=== PATIENT | female | born 1990 | race Caucasian/White ===

== ENCOUNTER 2019-09-14 07:51 | Emergency (ER) | payer MEDICAID, SELFPAY ==
[2019-09-14 08:02] VITALS: BP 113/74; PULSE 93; RESP 16; TEMP 36.8; O2SAT 98; BMI 27.3
--- NOTE | 2019-09-14 08:09 | W.ED.FEMALGU ---
HPI - Female Genitourinary General: Chief complaint: Abdominal Pain Stated complaint: back pain, right side Pain Time Seen by Provider: 09/14/19 08:05 Source: patient Mode of arrival: ambulatory Limitations: no limitations History of Present Illness: HPI Narrative: Patient is a 29-year-old female who presents to ED today with complaints of right flank pain; patient states she has a known 9 mm stone to her right kidney that was diagnosed about a year ago; she has not had much problems with the area until today; patient states yesterday she slipped and fell on a dryer sheet and landed onto her buttocks; patient states she did not have pain after the fall but states several hours later she began experiencing some right flank pain that was identical in nature when she had a large stone on her left kidney; patient denies any urinary symptoms MD elicited complaint: flank pain Pertinent past history: other (previous kidney stones) Location of symptoms: flank Severity: moderate Female Urogenital Radiation: Non-Radiating Quality of pain: sharp Consistency: constant Vaginal discharge: none Vaginal bleeding: none Relieving factors: none Associated symptoms: Reports no associated symptoms; Deny abdominal pain or nausea Treatment prior to arrival: none Patient : No Review of Systems Const: Denies: fever or chills Card: Denies: chest pain Resp: Denies: shortness of breath, productive cough or non-productive cough GI: Denies: abdominal pain, nausea, vomiting, vomiting blood, diarrhea or constipation : Reports: flank pain; Denies: difficulty urinating, painful urination, urinary frequency, urinary urgency, urinary hesitancy or decreased urine ouput Musc: Denies: neck pain or back pain Skin/Breast: Denies: rash Physical Exam Const: COMMON NORMALS: no apparent distress, average body habitus, oriented x3, healthy appearing, alert and well nourished GI: COMMON NORMALS: normal to inspection, nondistended, normoactive bowel sounds, soft to palpation, non-tender, no hepatosplenomegaly and no masses PALPATION: Yes soft and Yes no hepatosplenomegaly : BLADDER/KIDNEY EXAM: Yes CVA tenderness on the right Back/Pelvis: GENERAL BACK: Yes CVA tenderness THORACIC SPINE/UPPER BACK: Yes normal to inspection, Yes thoracic ROM normal and No paraspinal muscle tenderness LUMBAR SPINE/LOWER BACK: Yes normal to inspection, Yes lumbar ROM normal and No paraspinal muscle tenderness PELVIS: Yes buttocks normal, Yes no pain with anterior-posterior compression and Yes no pain with lateral compression Neuro: COMMON NORMALS: oriented x3 SENSORIUM/ORIENTATION: Yes alert Course Vital Signs: Vital signs: Vital Signs Temperature 98.3 F 09/14/19 08:02 Pulse Rate 70 09/14/19 09:23 Respiratory Rate 16 09/14/19 09:23 Blood Pressure 147/90 09/14/19 09:23 Pulse Oximetry 98 09/14/19 09:23 MDM - Female MDM Narrative: Medical decision making narrative: CT renal back in December did not comment on a large R kidney stone but when I looked through images, she did have a 6-7mm stone in R kidney; this stone was not visualized on today's examination; UA w/o blood here; possibly degraded/passed stone on her own since last imaging was completed Lab Data: Labs: Lab Results 09/14/19 09/14/19 09/14/19 Range/Units 08:15 08:15 08:15 WBC 7.1 (4.0-10.0) 10^3/ uL RBC 4.41 (4.1-5.3) 10^6/u L Hgb 11.5 (11.5-15.3) g/dL Hct 36.7 L (37.0-47.0) % MCV 83.2 (81-99) fL MCH 26.1 L (28.0-34.0) pg MCHC 31.3 (30.0-36.0) g/dL RDW 15.6 H (12.1-15.1) % Plt Count 384 (130-400) 10^3/c mm MPV 10.4 (7.4-10.4) fL Neut % (Auto) 58.8 % Lymph % (Auto) 28.5 % [place] % (Auto) 5.8 % Eos % (Auto) 5.9 % Baso % (Auto) 0.7 % Neut # (Auto) 4.2 (1.8-7.7) 10^3/u L Lymph # (Auto) 2.0 (0.8-4.8) 10^3/u L [place] # (Auto) 0.4 (0.2-0.9) 10^3/u L Eos # (Auto) 0.4 (0.0-0.8) 10^3/u L Baso # (Auto) 0.1 (0.0-0.1) 10^3/u L Nucleated RBC % (a uto) 0 % Nucleated RBCs # 0.0 /100WBC Sodium 136 (136-145) mmol/L Potassium 4.1 (3.5-5.1) mmol/L Chloride 101 (98-107) mmol/L Carbon Dioxide 23 (22-29) mmol/L Anion Gap 16.1 (5-19) BUN 12 (6-20) mg/dL Creatinine 0.5 (0.5-0.9) mg/dL GFR Calculation 148.0 H (90-130) mL/min Glucose 111 H (74-109) mg/dL Calcium 9.5 (8.6-10.0) mg/Dl Total Bilirubin 0.3 (0.15-1.2) mg/dL AST 19 (0-32) U/L ALT 11 (0-33) U/L Alkaline Phosphata se 99 (35-105) IU/L Total Protein 7.3 (6.6-8.7) g/dL Albumin 5.4 H (3.5-5.2) g/dL Globulin 1.9 (1.3-4.6) g/dL HCG, Qual Negative (Negative) Urine Color (Yellow) Urine Appearance (CLEAR) Urine pH (5-7) Ur Specific Gravit y (1.005-1.030) Urine Protein (Negative) Urine Glucose (UA) (Normal) Urine Ketones (Negative) Urine Occult Blood (Negative) Urine Nitrate (Negative) Urine Bilirubin (NEGATIVE) Urine Urobilinogen (Negative) mg/dL Ur Leukocyte Kayy ase (Negative) 09/14/19 Range/Units 08:26 WBC (4.0-10.0) 10^3/ uL RBC (4.1-5.3) 10^6/u L Hgb (11.5-15.3) g/dL Hct (37.0-47.0) % MCV (81-99) fL MCH (28.0-34.0) pg MCHC (30.0-36.0) g/dL RDW (12.1-15.1) % Plt Count (130-400) 10^3/c mm MPV (7.4-10.4) fL Neut % (Auto) % Lymph % (Auto) % [place] % (Auto) % Eos % (Auto) % Baso % (Auto) % Neut # (Auto) (1.8-7.7) 10^3/u L Lymph # (Auto) (0.8-4.8) 10^3/u L [place] # (Auto) (0.2-0.9) 10^3/u L Eos # (Auto) (0.0-0.8) 10^3/u L Baso # (Auto) (0.0-0.1) 10^3/u L Nucleated RBC % (a uto) % Nucleated RBCs # /100WBC Sodium (136-145) mmol/L Potassium (3.5-5.1) mmol/L Chloride (98-107) mmol/L Carbon Dioxide (22-29) mmol/L Anion Gap (5-19) BUN (6-20) mg/dL Creatinine (0.5-0.9) mg/dL GFR Calculation (90-130) mL/min Glucose (74-109) mg/dL Calcium (8.6-10.0) mg/Dl Total Bilirubin (0.15-1.2) mg/dL AST (0-32) U/L ALT (0-33) U/L Alkaline Phosphata se (35-105) IU/L Total Protein (6.6-8.7) g/dL Albumin (3.5-5.2) g/dL Globulin (1.3-4.6) g/dL HCG, Qual (Negative) Urine Color Yellow (Yellow) Urine Appearance Clear (CLEAR) Urine pH 5.0 (5-7) Ur Specific Gravit y 1.025 (1.005-1.030) Urine Protein Neg (Negative) Urine Glucose (UA) Norm (Normal) Urine Ketones Negative (Negative) Urine Occult Blood Neg (Negative) Urine Nitrate Negative (Negative) Urine Bilirubin 1+ H (NEGATIVE) Urine Urobilinogen Norm (Negative) mg/dL Ur Leukocyte Kayy ase Negative (Negative) Imaging Data: CT renal : Radiologist's impression: [address] [address] [address] Scan Report Signed Patient: Celina Hinton [id number] [facility] 1990 [id number] Age/Sex: 29 / F ADM Date: 09/14/19 Loc: ER Room/Bed: Attending Dr: Ordering Provider/Ordering MD: Xenia Aviles Date of Service: 09/14/19 Procedure(s): CT kidney stone 270[address] Accession Number(s): [id number] Report Number: [id number] WS: [id number] CT scan of the abdomen and pelvis without Oral and IV contrast. Additional two-dimensional coronal and sagittal reconstruction was performed. 09/14/2019 Clinical Data: R flank pain Comparison: CT abdomen and pelvis, 01/09/2019. DLP: 893.[address] scans at [facility] use at least one of these dose optimization techniques: automated exposure control; mA and/or kV adjustment per patient size (includes targeted exams where dose is matched to clinical indication); or iterative reconstruction. Findings: The lower lungs show no nodules, masses or effusions. The liver, gallbladder, spleen, adrenal glands and pancreas are normal. The kidneys show show 2 nonobstructing central left renal calculi. No calculi are seen on the right. No ureteral calculi are seen. No hydronephrosis, mass, or or cysts are seen in either kidney. The abdominal aorta is normal in size. No appendicitis or diverticulitis is seen. No abscess, adenopathy, ascites, mass, obstruction or free air is seen. The bladder is unremarkable. Uterus is normal. No inguinal hernia is seen. The bones of the lower thorax, lumbar spine, pelvis, and hips are normal. CT/CT kidney stone [id number] Impression: 1. 2 small nonobstructing left renal calculi. 2. Negative for obstructing renal or ureteral calculi. 3. Negative for acute abdominal or pelvic abnormalities. Dictated By: Devika Stone MD Signed By: Devika Stone MD Signed Date/Time: 09/14/19 0849 DD/ 0 Discharge Plan Discharge Patient Disposition: Home, Self-Care Clinical Impression: Acute right flank pain Condition: Stable Discharge Orders: Discharge Order (Routine); Ordered 09/14/19 Ordered By: Xenia Aviles Referrals: Carroll Humphreys MD [Family Provider] - Discharge Diet: Usual diet Discharge Activity: Resume usual activity Patient Instructions: Abdominal Pain (ED) Discharge Date/Time: 09/14/19 09:24 Coding Level of Care Code ED Dispatch Machine Runner for Chg Fwd Exam Problem Focused
[2019-09-14] MEDS: sodium chloride 0.9% 1,000 ML 999 ML IV (08:22)
[2019-09-14] MEDS: ketorolac 30 mg/mL INJ IVP (08:22)
[2019-09-14 08:27] LABS: Basophils # 0.1 10^3/uL (0.0-0.1); Basophils % 0.7 %; Eosinophils # 0.4 10^3/uL (0.0-0.8); Eosinophils % 5.9 %; Hematocrit 36.7 % (37.0-47.0); Hemoglobin 11.5 g/dL (11.5-15.3); Lymphocytes % 28.5 %; Mean Corpuscular HGB Conc 31.3 g/dL (30.0-36.0); Mean Corpuscular Hemoglobin 26.1 pg (28.0-34.0); Mean Corpuscular Volume 83.2 fL (81-99); Mean Platelet Volume 10.4 fL (7.4-10.4); Monocytes # 0.4 10^3/uL (0.2-0.9); Monocytes % 5.8 %; Neutrophils # 4.2 10^3/uL (1.8-7.7); Neutrophils % 58.8 %; Nucleated Red Blood Cells % 0 %; Platelet Count 384 10^3/cmm (130-400); Red Blood Count 4.41 10^6/uL (4.1-5.3); Red Cell Distribution Width 15.6 % (12.1-15.1); White Blood Count 7.1 10^3/uL (4.0-10.0)
--- NOTE | 2019-09-14 08:30 | PC.NURSE ---
Patient walked to CT with [employer]
[2019-09-14 08:35] LABS: Add Urine Microscopic? NO
--- NOTE | 2019-09-14 08:36 | PC.NURSE ---
Patient back to treatment room
[2019-09-14 08:44] LABS: Alanine Aminotransferase 11 U/L (0-33); Albumin Level 5.4 g/dL (3.5-5.2); Alkaline Phosphatase 99 IU/L (35-105); Anion Gap 16.1 (5-19); Aspartate Amino Transferase 19 U/L (0-32); Blood Urea Nitrogen 12 mg/dL (6-20); Calcium 9.5 mg/Dl (8.6-10.0); Carbon Dioxide 23 mmol/L (22-29); Chloride 101 mmol/L (98-107); Globulin 1.9 g/dL (1.3-4.6); Glucose 111 mg/dL (74-109); Potassium 4.1 mmol/L (3.5-5.1); Sodium 136 mmol/L (136-145); Total Bilirubin 0.3 mg/dL (0.15-1.2); Total Protein 7.3 g/dL (6.6-8.7)
[2019-09-14 09:01] LABS: HCG, Serum Qual Negative (Negative)
[2019-09-14 09:02] LABS: Bilirubin Urine 1+ (NEGATIVE); Blood Urine Neg (Negative); Glucose Urine UA Norm (Normal); Ketones Urine Negative (Negative); Leukocyte Esterase Urine Negative (Negative); Nitrate Urine Negative (Negative); Protein Urine Neg (Negative); Specific Gravity, Urine 1.025 (1.005-1.030); Urine Appearance Clear (CLEAR); Urine Color Yellow (Yellow); Urobilinogen Urine Norm (Negative)
[2019-09-14 09:23] VITALS: BP 147/90; PULSE 70; RESP 16; O2SAT 98
== END 2019-09-14 09:24 | disposition home or self-care (01) ==
PROVIDERS: Emergency Provider Physician Assistant; Family Provider Family Medicine
DX: R10.9 Unspecified abdominal pain (principal)
CPT/HCPCS: 36415; 74176; 80053; 81003; 84703; 85025; 96360; 96374; 96375; 99281; A9270; J1885; J7030

== ENCOUNTER 2019-09-27 12:04 | Outpatient (CLI) | payer MEDICAID, SELFPAY ==
--- NOTE | 2019-09-27 | US_ITS ---
WS: [id number] ULTRASOUND ABDOMEN LIMITED CLINICAL INFORMATION: ABDOMINAL PAIN RUQ COMPARISON: None. FINDINGS: Liver Size: Normal. Craniocaudal length: 11.8 cm. Echogenicity: Normal. Surface nodularity: None. Mass (size and location): None. Bile ducts Intrahepatic ducts: Normal. Common bile duct diameter: 2.2 mm. Gallbladder Normal. Gallstones: None. Gallbladder sludge: None. Gallbladder wall thickening: None. Pericholecystic fluid: None. Sonographic Crawford sign: Absent. Pancreas Normal as visualized. Right kidney: Normal. Hydronephrosis: None. Size: 12.1 cm x 4.5 cm x 5.4 cm. Abdominal aorta and IVC Visualized portions are normal. Ascites: None. US/US gall bladder [id number] IMPRESSION: 1. Liver is normal. 2. Normal gallbladder. 3. No intrahepatic biliary ductal dilatation. 4. No hydronephrosis in right kidney.
== END 2019-09-27 12:05 | disposition home or self-care (01) ==
LOC: RADOUTREAD 14:41
PROVIDERS: Family Provider Family Medicine; Visit Provider Family Medicine
DX: Z76.89 Persons encountering health services in other specified circumstances (principal)

== ENCOUNTER 2019-11-04 07:38 | Outpatient (CLI) | payer MEDICAID, SELFPAY ==
--- NOTE | 2019-11-04 07:46 | NM_ITS ---
WS: [id number] NM hepatobiliary w phar* [id number] REASON FOR EXAM: RUQ ABDOMINAL PAIN TECHNICAL: Patient received 8.2 mCi technetium 99 in mebrofenin FINDINGS: After the bolus injection of the radiotracer the gallbladder visualizes well at 30 minutes patient was then given 8 ounces of Ensure Plus the ejection fraction 63%. NM/NM hepatobiliary w phar* [id number] IMPRESSION: Normal appearance of the gallbladder with normal ejection fraction.
== END 2019-11-04 07:39 | disposition home or self-care (01) ==
PROVIDERS: Family Provider Family Medicine; PCP Family Medicine; Visit Provider Family Medicine
DX: R10.11 Right upper quadrant pain (principal)
CPT/HCPCS: 78227; A9537

== ENCOUNTER 2020-04-20 06:40 | Day surgery (SDC) | payer MEDICAID, SELFPAY ==
[2020-04-20] VITALS (7 sets, daily range): BP systolic 102–114; BP diastolic 46–76; PULSE 62–81; RESP 14–18; TEMP 36.2–36.8; O2SAT 97–100
[2020-04-20 06:57] LABS: OR HCG Qualitative Urine Negative (Negative)
[2020-04-20] MEDS: sodium chloride 0.9% 1,000 ML 30 ML IV (07:11)
--- NOTE | 2020-04-20 07:17 | W.PM.OPSUD ---
Surgery/Procedure H&P Update DATE OF PROCEDURE: April 20, 2020 DATE H&P PERFORMED: 04/11/20 H&P UPDATE INFORMATION: No changes to prior documentation PLANNED PROCEDURE: Operation Date: 04/20/20 08:15 Proposed Procedures p Laparoscopic Cholecystectomy(Not Applicable) - Wali Aguilar MD
--- NOTE | 2020-04-20 07:40 | ANES.PREANE2 ---
Pre-Anesthetic Assessment Pre-Anesthetic Assessment: Height/Weight: Height 1.55 m Weight 74.843 kg Temp Pulse Resp BP Pulse Ox 98.2 F 78 18 113/76 99 04/20/20 06:52 04/20/20 06:52 04/20/20 06:52 04/20/20 06:52 04/20/20 06:52 Proposed Procedure: Operation Date: 04/20/20 08:15 Proposed Procedures p Laparoscopic Cholecystectomy(Not Applicable) - Wali Aguilar MD Familial anesthetic complications: none Was Beta Chichi taken within 24 hours: N/A Last intake: Intake Last Liquid Date 04/20/20 Last Liquid Time 00:00 Last Solid Date 04/20/20 Last Solid Time 00:00 Social: Social History: Tobacco and No alcohol Exam: Pre-Anes Outpt Exam: alert, oriented x 3, clear to auscultation bilaterally and regular rate & rhythm Airway: Cervical ROM: WNL MP: 2 Dentition: Full Anesthetic Plan: ASA status: 1 Anesthesia: General Risk of > 500 ml blood loss (7ml/kg in children): No Meds/Allergies Current Medications: Current Medications Generic Name Dose Route Start Last Admin Trade Name Freq PRN Reason Stop Dose Admin Sodium Chloride 1,000 mls @ 30 ml s/hr 04/20/20 06:45 04/20/20 07:11 Sodium Chloride 0.9% IV 04/21/20 06:44 30 mls/hr .Q24H DENYS Administration Data Anesthesia Other Labs: Laboratory Results - last 48 hr 04/20/20 06:48 Urine HCG, Qual Negative Cardiac Studies: No Data to Display
[2020-04-20 07:41] LABS: Alanine Aminotransferase 6 U/L (0-33); Albumin Level 4.5 g/dL (3.5-5.2); Alkaline Phosphatase 91 IU/L (35-105); Aspartate Amino Transferase 17 U/L (0-32); Globulin 2.6 g/dL (1.3-4.6); Total Bilirubin 0.2 mg/dL (0.15-1.2); Total Protein 7.1 g/dL (6.6-8.7)
--- NOTE | 2020-04-20 08:25 | PM.OP ---
Operative Report Date of procedure: April 20, 2020 Pre-op Diagnosis: Chronic cholecystitis. Post-op diagnosis: same Procedure Done: Laparoscopic cholecystectomy. Specimens removed/disposition: Gallbladder. Surgeon: Wali Aguilar Anesthesia: General Estimated blood loss (mL): 5 Complications: None. Condition: stable Disposition: PACU Procedure: The patient was brought to the Operating Room and was placed in a supine position on the Operating Room table. General endotracheal anesthesia was induced. The abdomen was prepped and draped in a sterile fashion. The small transverse scar just underneath the umbilicus was reopened using a scalpel. Blunt dissection was carried out down to the fascia, which was grasped with a Joseph clamp. A stay suture of 0 Vicryl was placed on either side of the midline and the midline fascia was incised. The underlying peritoneum was opened bluntly and the Gail port was placed directly into the peritoneal cavity and was held in place with the inflatable balloon. The peritoneal cavity was insufflated with carbon dioxide. The laparoscope was used to inspect the abdominal cavity. No gross abnormalities were initially noted. A 5 millimeter port was placed in the epigastrium under direct vision. Two 5-millimeter ports were placed on the right side of the abdomen under direct vision. The gallbladder was grasped and was elevated. The patient had some light adhesions to the infundibular region of the gallbladder which were all easily taken down using blunt dissection. Blunt dissection and hydrodissection were carried out in the infundibular region of the gallbladder and the cystic duct and cystic artery were identified. The gallbladder was partially removed from the liver bed using cautery and the spatula to confirm the anatomy before the structures were clipped and divided. The gallbladder was then removed from the liver bed using cautery and the spatula. After the gallbladder had been removed from the liver bed, the laparoscope was moved to the epigastric port and the gallbladder was removed from the peritoneal cavity through the umbilical port site. The stay sutures of Vicryl were tied to each other at the umbilicus. An additional [id number] suture of 0 Vicryl was placed, closing the defect so that it was airtight. The perihepatic spaces were irrigated with saline and the liver bed was reinspected. No ongoing problems were seen. The remaining ports were removed from the abdominal wall and the pneumoperitoneum was evacuated. All skin incisions were closed using inverted interrupted sutures of 4-0 Vicryl. Benzoin and Steri-Strips were placed over the incisions and Band-Aids followed. The patient was taken to the Recovery Area in stable condition postoperatively.
[2020-04-20] MEDS: ondansetron 2 mg/ML SDV 2 mL 4 MG IVP ×2 (08:40→08:56)
[2020-04-20] MEDS: HYDROcodone-acetaminophen 5-325 mg Tablet 1 TAB PO (09:10)
--- NOTE | 2020-04-20 12:28 | ANE.PACU2 ---
Inpatient post-anesthesia follow up: Airway intact: Yes Vital signs: Temperature 97.2 F Pulse Rate 70 Respiratory Rate 18 Blood Pressure 114/76 Pulse Oximetry 99 Oxygen Delivery Me thod Room Air Oxygen Flow Rate Fraction of Inspir ed Oxygen Hydration adequate: Yes Nausea and vomiting: No Pain level: 1 Mental status: Baseline
== END 2020-04-20 09:35 | disposition home or self-care (01) ==
PROVIDERS: PCP Family Medicine; Visit Provider Surgery
PROC: 0FT44ZZ Resection of Gallbladder, Percutaneous Endoscopic Approach (ICD-10-PCS; CPT 47562; principal; 2020-04-20 08:15)
DX: K81.1 Chronic cholecystitis (principal); F41.9 Anxiety disorder, unspecified; F32.9 Major depressive disorder, single episode, unspecified; D64.9 Anemia, unspecified; F17.210 Nicotine dependence, cigarettes, uncomplicated
CPT/HCPCS: 47562; 12345; 80076; 81025; 84703; 88304; 96374; J0690; J1100; J1885; J2405; J2704; J2710; J3010; J3490; J7030

== ENCOUNTER 2021-03-13 22:40 | Emergency (ER) | payer MEDICAID, SELFPAY ==
[2021-03-13 22:50] VITALS: BP 114/77; PULSE 84; RESP 18; TEMP 36.7; O2SAT 99; BMI 28.3
--- NOTE | 2021-03-13 23:31 | ED_ITS ---
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 Patient was seen by her eye personal care home administrator today and had a bandage contact lens placed. Patient reports she comes in tonight due to increased eyelid swelling and discomfort after placement of contact lens. On exam patient has swelling to the upper and lower eyelid. Patient appears in mild to moderate discomfort. Patient reports no difficulty with vision. Review of Systems General: Reports: 10 or more systems reviewed and unremarkable except in HPI and below Eyes: Reports: eye discomfort Physical Exam Const: COMMON NORMALS: no acute distress and patient oriented x3 GENERAL APPEARANCE: cooperative HENMT: COMMON NORMALS: normocephalic and Normal external nose present HEAD & SCALP: normal to inspection and normocephalic NOSE: Normal external nose present MOUTH: Normal oral and palatal mucosa present THROAT: posterior oropharynx normal Eye: OTHER: Swelling of the eyelids upper and lower of the right eye, with the use of tetracaine for anesthesia, and fluorescein for highlighting contact lens was removed. Evaluation of the cornea noted no significant corneal laceration or injury. Patient did have improvement of symptoms after removal of lens. Neck/C-Spine: COMMON NORMALS: full ROM Chest: COMMONS NORMALS: normal inspection of the chest Resp: COMMON NORMALS: normal respiratory effort EFFORT & INSPECTION: Yes able to speak in complete sentences Cardio: COMMON NORMALS: regular rate and regular rhythm RATE: regular rate RHYTHM: regular rhythm GI: COMMON NORMALS: non-tender Extremity: COMMON NORMALS: normal to inspection Neuro: COMMON NORMALS: patient oriented x3 and moves all extremities Psych: COMMON NORMALS: mental status grossly normal and cooperative Skin: COMMON NORMALS: no rashes or lesions noted GENERAL SKIN EXAM: no rashes or lesions noted Procedures FB Removal Eye Location: eye (R) Topical anesthetic used: tetracaine Foreign body: other (contact lense) Evidence of corneal penetration: No Technique: cotton tip swab Procedure performed under: direct visualization with magnification Post-procedure medication: ophthalmic antibiotic Patient tolerated procedure: well Course Vital Signs: Vital signs: Vital Signs Temperature 98.0 F 03/13/21 22:50 Pulse Rate 84 03/13/21 22:50 Respiratory Rate 18 03/13/21 22:50 Blood Pressure 114/77 03/13/21 22:50 Pulse Oximetry 99 03/13/21 22:50 MDM - Eye Problem MDM Narrative: Medical decision making narrative: 30-year-old female comes in with a inability to move contact lens that was placed today. On exam we note contact lens had shifted to the lower medial eye. Differential diagnosis inc ludes infection due to contact lens, corneal abrasion, allergic reaction. With the use of tetracaine and irrigation and a moistened cotton tip I was able to remove the bandage contact lens. Patient tolerated well. We will place patient on some Maxitrol eyedrops and recommend follow-up with eye personal care home administrator in the morning. Patient reported understanding and agreed to plan. Discharge Plan Discharge Patient Disposition: Home Clinical Impression: Contact lens stuck Condition: Stable Prescriptions: No Action hydrocodone-acetaminophen 5-325 mg tablet 1 - 2 tab PO Q5H PRN (Reason: pain) Qty: 30 RF: 0 Discharge Orders: Discharge ED (Routine); Ordered 03/14/21 Ordered By: Rodney Encarnacion Referrals: Carroll Humphreys MD [Primary Care Provider] - Discharge Diet: Usual diet Discharge Activity: Increase activity as tolerated Patient Instructions: Opioid Safety Activity Restrictions/Additional Instructions: Use antibiotic eyedrops as directed. Follow-up with eye personal care home administrator tomorrow. Return to the ER for new concerns. Coding Level of Care Code ED Hospital Supervisor for Adi Fwjavier Exam Comprehensive
[2021-03-13] MEDS: fluorescein 1 mg Strip EYE-RIGHT (23:51)
[2021-03-13] MEDS: tetracaine 0.5% Op Soln 4 mL Btl 1 DROP EYE-RIGHT (23:51)
[2021-03-14] MEDS: neomycin-poly-dex Op 5 mL Btl 2 DROP EYE-RIGHT (00:27)
[2021-03-14 00:39] VITALS: BP 113/76; PULSE 81; RESP 17; O2SAT 100
== END 2021-03-14 00:39 | disposition home or self-care (01) ==
PROVIDERS: Emergency Provider Nurse Practitioner Family; PCP Family Medicine
DX: T15.01XA Foreign body in cornea, right eye, initial encounter (principal); X58.XXXA Exposure to other specified factors, initial encounter
CPT/HCPCS: 65205; 99283

== ENCOUNTER 2021-06-22 10:43 | Emergency (ER) | payer MEDICAID, SELFPAY ==
[2021-06-22] VITALS (9 sets, daily range): BP systolic 109–122; BP diastolic 57–80; PULSE 76–95; RESP 12–20; TEMP 36.8; O2SAT 95–100; BMI 28.3
--- NOTE | 2021-06-22 11:57 | W.ED.ABDPA2 ---
Documented by User: SAYDA Lira 06/22/21 17:41 HPI - Abdominal Pain General: Chief Complaint: General Medical Stated Complaint: LEFT FLANK AND GROIN PAIN Time Seen by Provider: 06/22/21 11:24 History of Present Illness: HPI narrative: Patient is a 31-year-old female comes to the ED with abdominal pain. Patient describes pain is in the left flank region and it radiates to into left lower pelvis. She rates the pain currently an 8 out of 10. Says been getting up and moving around relieves it a little bit, but if she has to sit down pain seems to get worse. She has a history of kidney stones and says this feels similar to her last kidney stone. Associated Symptoms: Denies chills, constipation, diarrhea, dysuria, fever(s), hematochezia, hematuria, nausea and vomiting Review of Systems Const: Denies: fever(s), chills or fatigue Eyes: Denies: change in vision or eye discomfort ENMT: Denies: throat pain, odynophagia, nasal discharge or nasal congestion Card: Denies: chest pain, palpitations, edema, swelling of feet/ankles, dyspnea on exertion or orthopnea Resp: Denies: dyspnea, productive cough or non-productive cough GI: Denies: abdominal pain, nausea, vomiting, diarrhea, constipation or hematochezia : Reports: flank pain (left); Denies: dysuria or hematuria Musc: Denies: neck pain, back pain or extremity swelling Skin/Breast: Denies: rash or new lesions Neuro: Denies: headache(s), numbness in extremities or weakness in extremities Physical Exam Const: COMMON NORMALS: patient oriented x3, healthy appearing and alert GENERAL APPEARANCE: cooperative; not comfortable (Patient appears uncomfortable and is up moving around room due to pain) HENMT: COMMON NORMALS: normocephalic HEAD & SCALP: normocephalic MOUTH: Normal oral and palatal mucosa present THROAT: posterior oropharynx normal and uvula midline Neck/C-Spine: COMMON NORMALS: supple GENERAL: Yes normal visual inspection Resp: COMMON NORMALS: normal respiratory effort, No retractions, No use of accessory muscles and clear to auscultation bilaterally AUSCULTATION: clear to auscultation bilaterally Cardio: COMMON NORMALS: regular rate, regular rhythm, S1 normal heart sound present, S2 normal heart sound present, No gallops present (Cardio), No clicks present (Cardio), No murmurs present (Cardio) and Peripheral pulses 2+ throughout RATE: regular rate RHYTHM: regular rhythm HEART SOUNDS: S1 normal heart sound present and S2 normal heart sound present PERIPHERAL PULSES: Peripheral pulses 2+ throughout GI: COMMON NORMALS: Normal to inspection, nondistended, normoactive bowel sounds present, Soft to palpation, non-tender and no masses PALPATION: Yes Soft to palpation : BLADDER/KIDNEY EXAM: Yes CVA tenderness on the left Back/Pelvis: GENERAL BACK: Yes CVA tenderness Extremity: COMMON NORMALS: normal to inspection Neuro: COMMON NORMALS: patient oriented x3 SENSORIUM/ORIENTATION: Yes alert GAIT: Yes Normal gait present Skin: GENERAL SKIN EXAM: dry skin Course Reevaluation(s): Reevaluation #1: Patient's pain is finally controlled after she was given a dose of 1 mg Dilaudid. Previously, she had received 2 other doses of 4 mg of morphine and did not help at all with her pain. She is now sitting comfortably on the exam chair when I enter the room. She says she is in no pain for the first time since she has been here in the ED. Patient's pain is controlled and she is ready to be discharged home. Time: 16:06 Consultations: Consultation #1: I contacted Dr. Wadsworth about patient case. He recommended that if I get patient's pain controlled she can discharge home and he will see her in the office next week. Due to location of the stone he did not recommend me using any Toradol while she was here in the ED. Vital Signs: Vital signs: Vital Signs Temperature 98.3 F 06/22/21 11:45 Pulse Rate 95 06/22/21 16:59 Respiratory Rate 16 06/22/21 16:59 Blood Pressure 109/57 06/22/21 16:59 Pulse Oximetry 95 06/22/21 16:59 MDM - Abdominal Pain MDM Narrative: Medical decision making narrative: Patient is a 31-year-old female comes to the ED with left flank pain. Patient has a history of kidney stones and says this pain is similar to her past kidney stone pain. She has some left CVA tenderness upon exam. Vitals are stable. CBC and CMP are unremarkable. hCG negative. UA showed blood but no signs of infection. CT abdomen pelvis showed a left proximal ureter 3 mm stone. Patient's pain was hard to control at first she was given IV morphine 2 doses 4 mg and Zofran for nausea. I contacted Dr. Wadsworth told outpatient case and he recommended to continue try to get her pain controlled with narcotic meds but to not use Toradol since it is a proximal stone. He recommended once patient's pain is controlled they can be discharged home in he will follow up with them next week. Was able to control patient's pain with IV Dilaudid and she was comfortable and ready for discharge. She was also given IV fluids and tamsulosin while here in the ED. I placed order with case management for patient referred to Dr. Wadsworth for left-sided kidney stone. Patient stable and was discharged home and diagnosed with kidney stone on left side. She was instructed to strain her urine to catch stone and she was discharged home with a prescription for tamsulosin, Reglan and hydrocodone. Return to ED precautions given. Patient understood agree with plan. Lab Data: Attestation: I reviewed the patient's lab results. Labs: Lab Results 06/22/21 06/22/21 06/22/21 12:11 12:11 12:25 WBC 6.9 10^3/uL 10^3/ uL (4.0-10.0) RBC 4.36 10^6/uL 10^6 /uL (4.1-5.3) Hgb 13.1 g/dL g/dL (11.5-15.3) Hct 40.3 % % (37.0-47.0) MCV 92.4 fl fl (81-99) MCH 30.0 pg pg (28.0-34.0) MCHC 32.5 g/dL g/dL (30.0-36.0) RDW 12.5 % % (12.1-15.1) Plt Count 303 10^3/cmm 10^3 /cmm (130-400) MPV 11.7 fL H fL (7.4-10.4) Neut % (Auto) 65.8 % % Lymph % (Auto) 27.3 % % Long % (Auto) 5.5 % % Eos % (Auto) 0.7 % % Baso % (Auto) 0.6 % % Neut # (Auto) 4.51 10^3/uL 10^3 /uL (1.8-7.7) Lymph # (Auto) 1.9 10^3/uL 10^3/ uL (0.8-4.8) Long # (Auto) 0.4 10^3/uL 10^3/ uL (0.2-0.9) Eos # (Auto) 0.1 10^3/uL 10^3/ uL (0.0-0.8) Baso # (Auto) 0.0 10^3/uL 10^3/ uL (0.0-0.1) Nucleated RBC % (a uto) 0 % % Nucleated RBCs # 0.0 /100WBC /100W BC Sodium Potassium Chloride Carbon Dioxide Anion Gap BUN Creatinine GFR Calculation Glucose Calculated Osmolal ity Calcium Total Bilirubin AST ALT Alkaline Phosphata se Total Protein Albumin Globulin Lipase HCG, Qual Negative (Negative) Urine Color Dark yellow (Yellow) Urine Appearance Cloudy (CLEAR) Urine pH 5 (5-7) Ur Specific Gravit y 1.005 (1.005-1.030) Urine Protein Trace (Negative) Urine Glucose (UA) Norm (Normal) Urine Ketones 1+ H (Negative) Urine Blood 3+ H (Negative) Urine Nitrate Negative (Negative) Urine Bilirubin Neg (Negative) Urine Urobilinogen Norm mg/dL mg/dL (Negative) Ur Leukocyte Kayy ase Trace H (Negative) Urine RBC 40-50 /hpf H /hpf (0-2) Urine WBC 5-10 /hpf H /hpf (0-5) Ur Squamous Epith Cells 5-10 /hpf H /hpf (0-5) Amorphous Sediment Not Reportable Urine Bacteria Trace /hpf /hpf (NONE) 06/22/21 06/22/21 12:25 12:25 WBC RBC Hgb Hct MCV MCH MCHC RDW Plt Count MPV Neut % (Auto) Lymph % (Auto) Long % (Auto) Eos % (Auto) Baso % (Auto) Neut # (Auto) Lymph # (Auto) Long # (Auto) Eos # (Auto) Baso # (Auto) Nucleated RBC % (a uto) Nucleated RBCs # Sodium 134 mmol/L L mmol /L (136-145) Potassium 4.2 mmol/L mmol/L (3.5-5.1) Chloride 101 mmol/L mmol/L (98-107) Carbon Dioxide 20 mmol/L L mmol/ L (22-29) Anion Gap 17.2 (5-19) BUN 9 mg/dL mg/dL (6-20) Creatinine 0.6 mg/dL mg/dL (0.5-0.9) GFR Calculation 118.2 mL/min mL/m in (90-130) Glucose 87 mg/dL mg/dL (65-115) Calculated Osmolal ity 276 mOsm/kg L mOs m/kg (285-295) Calcium 9.0 mg/dL mg/dL (8.5-10.5) Total Bilirubin 0.3 mg/dL mg/dL (0.15-1.2) AST 14 U/L U/L (0-32) ALT 8 U/L U/L (0-33) Alkaline Phosphata se 55 IU/L IU/L (35-105) Total Protein 7.4 g/dL g/dL (6.6-8.7) Albumin 4.6 g/dL g/dL (3.5-5.2) Globulin 2.8 g/dL g/dL (1.3-4.6) Lipase 18 U/L U/L (13-60) HCG, Qual Negative (Negative) Urine Color Urine Appearance Urine pH Ur Specific Gravit y Urine Protein Urine Glucose (UA) Urine Ketones Urine Blood Urine Nitrate Urine Bilirubin Urine Urobilinogen Ur Leukocyte Kayy ase Urine RBC Urine WBC Ur Squamous Epith Cells Amorphous Sediment Urine Bacteria Imaging Data ^: CT Abd/Pel: Attestation: I personally reviewed and interpreted this imaging study as follows: Radiologist's impression: [address] [address] [address] Scan Report Signed Patient: Celina Hinton Unit #: [id number] : 1990 Age/Sex: 31 / F ADM Date: 06/22/21 Loc: ER Room/Bed: Attending Dr: Ordering Provider/Ordering MD: Terry Avila Date of Service: 06/22/21 Procedure(s): CT kidney stone [address] Accession Number(s): [id number] Report Number: [id number] WS: [id number] CT ABDOMEN PELVIS TECHNIQUE: Noncontrast CT of the abdomen and pelvis with coronal and sagittal reformatted images. CLINICAL INFORMATION: left flank pain, history of kidney stones COMPARISON: None. DLP: 843.[address] scans at [facility] use at least one of these dose optimization techniques: automated exposure control; mA and/or kV adjustment per patient size (includes targeted exams where dose is matched to clinical indication); or iterative reconstruction. FINDINGS: Moderate to advanced left hydronephrosis with obstructing left proximal ureteral calculus measuring 3 mm. Left ureter is decompressed distal to the calculus. No hydronephrosis in right kidney. Lung bases are well aerated. Noncontrast liver is normal. Cholecystectomy clips. Noncontrast spleen is normal. Normal GE junction. Adrenal glands are normal. Normal caliber abdominal aorta. No evidence of high-grade small or large bowel obstruction. Fat-containing umbilical hernia. Normal caliber abdominal aorta. Mild disc bulging L5-S1. Normal appendix right lower quadrant. CT/CT kidney stone [id number] IMPRESSION: 1. Moderate to severe left hydronephrosis with obstructing left proximal ureteral calculus measuring 3 mm. 2. No obstructing right renal or ureteral calculi. 3. Prior cholecystectomy. 4. Fat-containing umbilical hernia. 5. No other significant findings. Notified SAYDA Lira at 06/22/2021 1:14 PM. Dictated By: Jarad Durand MD Signed By: Jarad Durand MD Signed Date/Time: 06/22/21 1316 DD/ 1306 Discharge Plan Discharge Patient Disposition: Home Clinical Impression: Kidney stone on left side Condition: Stable Prescriptions: New tamsulosin 0.4 mg capsule 0.4 mg PO DAILY Qty: 20 RF: 0 Reglan 10 mg tablet 10 mg PO Q6H PRN (Reason: nausea and vomiting) Qty: 15 RF: 0 No Action hydrocodone-acetaminophen 5-325 mg tablet 1 - 2 tab PO Q5H PRN (Reason: pain) Qty: 30 RF: 0 Discharge Orders: Discharge ED (Routine); Ordered 06/22/21 Ordered By: Terry Avila Referrals: Carroll Humphreys MD [Primary Care Provider] - Discharge Diet: Regular Discharge Activity: Increase activity as tolerated Patient Instructions: Kidney Stones (ED), How to Strain Your Urine (ED), Opioid Safety Activity Restrictions/Additional Instructions: Follow-up with medical provider as directed. Case management should be contacting you in the next several days to set up an appointment with Dr. Wadsworth the urologist. Strain urine to catch stone and drink lots of fluid to stay hydrated and help pass stone. Take medications as prescribed. You can take ibuprofen or Aleve for any pain or fevers. Return to the ER or your medical provider if condition worsens. Please read and understand discharge instructions. If any questions, please ask. Coding Level of Care Code ED Director Of Housing for Chg Fwd Exam Comprehensive Documented by User: David Sepulveda MD 06/25/21 21:31 HPI - Abdominal Pain General: Chief Complaint: General Medical Stated Complaint: LEFT FLANK AND GROIN PAIN Time Seen by Provider: 06/22/21 11:24 Course Vital Signs: Vital signs: Vital Signs Temperature 98.3 F 06/22/21 11:45 Pulse Rate 95 06/22/21 16:59 Respiratory Rate 16 06/22/21 16:59 Blood Pressure 109/57 06/22/21 16:59 Pulse Oximetry 95 06/22/21 16:59 MDM - Abdominal Pain MDM Narrative: Medical decision making narrative: I have reviewed documentation, labs, and imaging. SAYDA Lira discussed the case with urology. David Sepulveda MD Emergency Medicine Lab Data: Labs: Lab Results 06/22/21 06/22/21 06/22/21 12:11 12:11 12:25 WBC 6.9 10^3/uL 10^3/ uL (4.0-10.0) RBC 4.36 10^6/uL 10^6 /uL (4.1-5.3) Hgb 13.1 g/dL g/dL (11.5-15.3) Hct 40.3 % % (37.0-47.0) MCV 92.4 fl fl (81-99) MCH 30.0 pg pg (28.0-34.0) MCHC 32.5 g/dL g/dL (30.0-36.0) RDW 12.5 % % (12.1-15.1) Plt Count 303 10^3/cmm 10^3 /cmm (130-400) MPV 11.7 fL H fL (7.4-10.4) Neut % (Auto) 65.8 % % Lymph % (Auto) 27.3 % % Long % (Auto) 5.5 % % Eos % (Auto) 0.7 % % Baso % (Auto) 0.6 % % Neut # (Auto) 4.51 10^3/uL 10^3 /uL (1.8-7.7) Lymph # (Auto) 1.9 10^3/uL 10^3/ uL (0.8-4.8) Long # (Auto) 0.4 10^3/uL 10^3/ uL (0.2-0.9) Eos # (Auto) 0.1 10^3/uL 10^3/ uL (0.0-0.8) Baso # (Auto) 0.0 10^3/uL 10^3/ uL (0.0-0.1) Nucleated RBC % (a uto) 0 % % Nucleated RBCs # 0.0 /100WBC /100W BC Sodium Potassium Chloride Carbon Dioxide Anion Gap BUN Creatinine GFR Calculation Glucose Calculated Osmolal ity Calcium Total Bilirubin AST ALT Alkaline Phosphata se Total Protein Albumin Globulin Lipase HCG, Qual Negative (Negative) Urine Color Dark yellow (Yellow) Urine Appearance Cloudy (CLEAR) Urine pH 5 (5-7) Ur Specific Gravit y 1.005 (1.005-1.030) Urine Protein Trace (Negative) Urine Glucose (UA) Norm (Normal) Urine Ketones 1+ H (Negative) Urine Blood 3+ H (Negative) Urine Nitrate Negative (Negative) Urine Bilirubin Neg (Negative) Urine Urobilinogen Norm mg/dL mg/dL (Negative) Ur Leukocyte Kayy ase Trace H (Negative) Urine RBC 40-50 /hpf H /hpf (0-2) Urine WBC 5-10 /hpf H /hpf (0-5) Ur Squamous Epith Cells 5-10 /hpf H /hpf (0-5) Amorphous Sediment Not Reportable Urine Bacteria Trace /hpf /hpf (NONE) 10/22/21 10/22/21 12:25 12:25 WBC RBC Hgb Hct MCV MCH MCHC RDW Plt Count MPV Neut % (Auto) Lymph % (Auto) Long % (Auto) Eos % (Auto) Baso % (Auto) Neut # (Auto) Lymph # (Auto) Long # (Auto) Eos # (Auto) Baso # (Auto) Nucleated RBC % (a uto) Nucleated RBCs # Sodium 134 mmol/L L mmol /L (136-145) Potassium 4.2 mmol/L mmol/L (3.5-5.1) Chloride 101 mmol/L mmol/L (98-107) Carbon Dioxide 20 mmol/L L mmol/ L (22-29) Anion Gap 17.2 (5-19) BUN 9 mg/dL mg/dL (6-20) Creatinine 0.6 mg/dL mg/dL (0.5-0.9) GFR Calculation 118.2 mL/min mL/m in (90-130) Glucose 87 mg/dL mg/dL (65-115) Calculated Osmolal ity 276 mOsm/kg L mOs m/kg (285-295) Calcium 9.0 mg/dL mg/dL (8.5-10.5) Total Bilirubin 0.3 mg/dL mg/dL (0.15-1.2) AST 14 U/L U/L (0-32) ALT 8 U/L U/L (0-33) Alkaline Phosphata se 55 IU/L IU/L (35-105) Total Protein 7.4 g/dL g/dL (6.6-8.7) Albumin 4.6 g/dL g/dL (3.5-5.2) Globulin 2.8 g/dL g/dL (1.3-4.6) Lipase 18 U/L U/L (13-60) HCG, Qual Negative (Negative) Urine Color Urine Appearance Urine pH Ur Specific Gravit y Urine Protein Urine Glucose (UA) Urine Ketones Urine Blood Urine Nitrate Urine Bilirubin Urine Urobilinogen Ur Leukocyte Kayy ase Urine RBC Urine WBC Ur Squamous Epith Cells Amorphous Sediment Urine Bacteria Discharge Plan Discharge Patient Disposition: Home Clinical Impression: Kidney stone on left side Condition: Stable Prescriptions: New tamsulosin 0.4 mg capsule 0.4 mg PO DAILY Qty: 20 RF: 0 Reglan 10 mg tablet 10 mg PO Q6H PRN (Reason: nausea and vomiting) Qty: 15 RF: 0 No Action hydrocodone-acetaminophen 5-325 mg tablet 1 - 2 tab PO Q5H PRN (Reason: pain) Qty: 30 RF: 0 Discharge Orders: Discharge ED (Routine); Ordered 06/22/21 Ordered By: Terry Avila Referrals: Carroll Humphreys MD [Primary Care Provider] - Discharge Diet: Regular Discharge Activity: Increase activity as tolerated Patient Instructions: Kidney Stones (ED), How to Strain Your Urine (ED), Opioid Safety Activity Restrictions/Additional Instructions: Follow-up with medical provider as directed. Case management should be contacting you in the next several days to set up an appointment with Dr. Wadsworth the urologist. Strain urine to catch stone and drink lots of fluid to stay hydrated and help pass stone. Take medications as prescribed. You can take ibuprofen or Aleve for any pain or fevers. Return to the ER or your medical provider if condition worsens. Please read and understand discharge instructions. If any questions, please ask. Coding Level of Care Code ED Director Of Housing for Adi Fwd Exam Comprehensive
--- NOTE | 2021-06-22 12:02 | CT_ITS ---
WS: [id number] CT ABDOMEN PELVIS TECHNIQUE: Noncontrast CT of the abdomen and pelvis with coronal and sagittal reformatted images. CLINICAL INFORMATION: left flank pain, history of kidney stones COMPARISON: None. DLP: 843.[address] scans at [facility] use at least one of these dose optimization techniques: automated e xposure control; mA and/or kV adjustment per patient size (includes targeted exams where dose is matc hed to clinical indication); or iterative reconstruction. FINDINGS: Moderate to advanced left hydronephrosis with obstructing left proximal ureteral calculus measuring 3 mm. Left ureter is decompressed distal to the calculus. No hydronephrosis in right kidney. Lung bases are well aerated. Noncontrast liver is normal. Cholecys tectomy clips. Noncontrast spleen is normal. Normal GE junction. Adrenal glands are normal. Normal ca liber abdominal aorta. No evidence of high-grade small or large bowel obstruction. Fat-containing umbilical hernia. Normal c aliber abdominal aorta. Mild disc bulging L5-S1. Normal appendix right lower quadrant. CT/CT kidney stone [id number] IMPRESSION: 1. Moderate to severe left hydronephrosis with obstructing left proximal urete ral calculus measuring 3 mm. 2. No obstructing right renal or ureteral calculi. 3. Prior cholecystectomy. 4. Fat-containing umbilical hernia. 5. No other significant findings. Notified SAYDA Lira at 06/22/2021 1:14 PM.
[2021-06-22 12:25] LABS: HCG Qualitative Urine. Negative (Negative)
[2021-06-22] MEDS: ondansetron 2 mg/ML SDV 2 mL 4 MG IVP (12:27)
[2021-06-22] MEDS: sodium chloride 0.9% 1,000 ML 999 ML IV (12:29)
[2021-06-22] MEDS: morphine 4 mg/mL SDV 1 mL IVP ×2 (12:30→14:03)
[2021-06-22 12:41] LABS: Basophils % 0.6 %; Eosinophils # 0.1 10^3/uL (0.0-0.8); Eosinophils % 0.7 %; Hematocrit 40.3 % (37.0-47.0); Hemoglobin 13.1 g/dL (11.5-15.3); Lymphocytes # 1.9 10^3/uL (0.8-4.8); Lymphocytes % 27.3 %; Mean Corpuscular HGB Conc 32.5 g/dL (30.0-36.0); Mean Corpuscular Volume 92.4 fl (81-99); Mean Platelet Volume 11.7 fL (7.4-10.4); Monocytes # 0.4 10^3/uL (0.2-0.9); Monocytes % 5.5 %; Neutrophils # 4.51 10^3/uL (1.8-7.7); Neutrophils % 65.8 %; Nucleated Red Blood Cells % 0 %; Platelet Count 303 10^3/cmm (130-400); Red Blood Count 4.36 10^6/uL (4.1-5.3); Red Cell Distribution Width 12.5 % (12.1-15.1); White Blood Count 6.9 10^3/uL (4.0-10.0)
[2021-06-22 13:07] LABS: HCG, Serum Qual Negative (Negative)
[2021-06-22 13:11] LABS: Add Urine Microscopic? YES; Bilirubin Urine Neg (Negative); Blood Urine 3+ (Negative); Glucose Urine UA Norm (Normal); Ketones Urine 1+ (Negative); Leukocyte Esterase Urine Trace (Negative); Nitrate Urine Negative (Negative); Protein Urine Trace (Negative); Specific Gravity, Urine 1.005 (1.005-1.030); Urine Appearance Cloudy (CLEAR); Urine Color Dark Yellow (Yellow); Urobilinogen Urine Norm (Negative); pH Urine 5 (5-7)
[2021-06-22 13:12] LABS: Add Urine Culture? No; Bacteria Urine TRACE /hpf; RBC Urine 40-50 /hpf (0-2)
[2021-06-22 13:15] LABS: Alanine Aminotransferase 8 U/L (0-33); Albumin Level 4.6 g/dL (3.5-5.2); Alkaline Phosphatase 55 IU/L (35-105); Anion Gap 17.2 (5-19); Aspartate Amino Transferase 14 U/L (0-32); Blood Urea Nitrogen 9 mg/dL (6-20); Carbon Dioxide 20 mmol/L (22-29); Chloride 101 mmol/L (98-107); Globulin 2.8 g/dL (1.3-4.6); Glomerular Filtration Rate 118.2 mL/min (90-130); Glucose 87 mg/dL (65-115); Lipase 18 U/L (13-60); Osmolality Calculated 276 mOsm/kg (285-295); Potassium 4.2 mmol/L (3.5-5.1); Sodium 134 mmol/L (136-145); Total Bilirubin 0.3 mg/dL (0.15-1.2); Total Protein 7.4 g/dL (6.6-8.7)
[2021-06-22] MEDS: tamsulosin 0.4 mg Capsule PO (14:04)
[2021-06-22] MEDS: HYDROmorphone 1 mg/mL INJ 1 mL IVP (15:39)
[2021-06-22] MEDS: sodium chloride 0.9% 500 ML 999 ML IV (15:39)
[2021-06-22] MEDS: metoclopramide 5 mg/mL SDV 2 mL 10 MG IVP (15:43)
--- NOTE | 2021-06-27 10:14 | DCPLANNER ---
Addendum entered by Mary Chu 07/05/21 13:50: selling manager called the office of Dr. Wadsworth to confirm if an appointment had been scheduled for patient. selling manager spoke with Valeriy, was told that patient passed stone, and does not need to be seen at this time. Original Note: selling manager had message to schedule a follow up appointment for patient with Dr. Wadsworth. selling manager called the office of Dr. Wadsworth, spoke with Valeriy, gave clinic patients information. selling manager was told that patients information would be printed and reviewed. Clinic will call patient with appointment information.
== END 2021-06-22 17:01 | disposition home or self-care (01) ==
PROVIDERS: Emergency Medicine; Emergency Provider Physician Assistant; PCP Family Medicine
DX: N20.0 Calculus of kidney (principal)
CPT/HCPCS: 74176; 80053; 81001; 81025; 83690; 84703; 85025; 96361; 96374; 96375; 96376; 99284; J1170; J2270; J2405; J2765; J7030; J7040

== ENCOUNTER 2021-07-22 12:32 | Emergency (ER) | payer MEDICAID, SELFPAY ==
[2021-07-22 12:44] VITALS: BP 120/86; PULSE 102; RESP 16; TEMP 36.9; O2SAT 98
--- NOTE | 2021-07-22 12:55 | USR_ITS ---
PROCEDURE INFORMATION: Exam: US Pelvis, Transvaginal Exam date and time: 07/22/2021 12:55 PM Age: 31 years old Clinical indication: Condition or disease; Other: Vaginal bleeding; Additional info: Eval for bleeding TECHNIQUE: Imaging protocol: Real-time transvaginal pelvic ultrasound with image documentation. Transvaginal imaging was used for better evaluation of the endometrium, adnexa, and/or cervix. COMPARISON: US pelvic complete* [id number] 04/02/2021 4:17 PM FINDINGS: Uterus: The uterus measures 7.7 x 3.7 x 4.9 cm. Nonspecific subcentimeter echogenic focus posterior to the endometrial fundus. No uterine mass. Endometrial stripe thickness measures 5 mm. Right ovary/adnexa: The right ovary measures 2.1 x 2.7 x 1.6 cm. No mass. Normal ovarian blood flow. Left ovary/adnexa: The left ovary measures 2.4 x 2.5 x 1.1 cm. No mass. Normal ovarian blood flow. Intraperitoneal space: No free fluid. US/US transvaginal [id number] IMPRESSION: No acute findings. Radiation Dose CTDIVOL = (mGy): DLP = (mGy-cm)
--- NOTE | 2021-07-22 13:11 | ED_ITS ---
HPI - General Adult General: Chief complaint: Vaginal Bleeding Stated complaint: losing blood Time Seen by Provider: 07/22/21 12:52 History of Present Illness: HPI narrative: Patient is a 31-year-old female with a history of abnormal uterine bleeding, prior tubal ligation presents emergency room with worsening vaginal bleeding x1 day. Patient has been abnormally she goes through 6 pads a day. However since yesterday, patient has been going through a pad every hour. Patient reports feeling lightheaded, passage of clots, and mild pelvic cramps. Patient has no abdominal, nausea/vomiting, fevers or chills, chest pain, dyspnea, and palpitations. Onset:1 day ago acutely Duration:1 day Location:home Severity:moderate Review of Systems Narrative: Constitutional: No fever, no chills. HEENT: No vision changes CV: No chest pain, no palpitations PULM: no cough, no dyspnea. GI: No abdominal pain, no N/V/D. : No dysuria, +vaginal bleeding/+mild cramps MSKEL: No muscle pain SKIN: No new rashes, no lesions. NEURO: No headache, no focal weakness. HEME: No visible bruises PSYCH: Normal mood [facility] Female Reproductive History: Date of last menstrual period: 04/01/21 Physical Exam Narrative: EXAM NARRATIVE: Head: Atraumatic Eyes: PERRL, conjunctiva without injection ENT: Mucous membrane moist NECK: Supple, ROM intact LUNGS: LCTAB, no crackles/rhonchi CV: RRR ABDOMEN: Soft, nontender in all quadrants EXTREMITY: Normal ROM SKIN: No rash or erythema NEURO: Awake and alert, no focal motor deficits PSYCH: Normal mood and affect : Course Vital Signs: Vital signs: Vital Signs Temperature 98.4 F 07/22/21 12:44 Pulse Rate 71 07/22/21 15:34 Respiratory Rate 18 07/22/21 15:34 Blood Pressure 106/67 07/22/21 15:34 Pulse Oximetry 97 07/22/21 15:34 MDM - General Adult MDM Narrative: Medical decision making narrative: Patient is a 31-year-old female with a history of abnormal uterine bleeding, tubal ligation presents emergency room passage of clots worsening/heavy bleeding x1 day. On exam, patient is noted to be mildly tachycardic. Patient does not appear pale on exam. Pelvic exam is significant mild bleeding in the vaginal vault without any signs of active bleeding. Workup: CBC, CMP, Lipase, PT/PTT/INR, hCG, Transvaginal US US showed no focal findings. H&H appears to be stable. Patient continues to hemodynamically stable without any signs of active bleeding. Not today. Disposition: Discharge. Patient counseled regarding diagnostic impression, treatment plan. Patient given ED strict return precautions to return for continuation, worsening, or development of new symptoms. Instructed to f/u w/ PCP regarding symptoms today. Patient verbalized understanding. Lab Data: Labs: Lab Results 07/22/21 07/22/21 07/22/21 13:00 13:02 13:02 WBC 6.4 10^3/uL 10^3/ uL (4.0-10.0) RBC 4.33 10^6/uL 10^6 /uL (4.1-5.3) Hgb 13.2 g/dL g/dL (11.5-15.3) Hct 38.8 % % (37.0-47.0) MCV 89.6 fl fl (81-99) MCH 30.5 pg pg (28.0-34.0) MCHC 34.0 g/dL g/dL (30.0-36.0) RDW 12.7 % % (12.1-15.1) Plt Count 240 10^3/cmm 10^3 /cmm (130-400) MPV 11.6 fL H fL (7.4-10.4) Neut % (Auto) 62.6 % % Lymph % (Auto) 31.7 % % Kidder % (Auto) 3.5 % % Eos % (Auto) 1.6 % % Baso % (Auto) 0.3 % % Neut # (Auto) 3.99 10^3/uL 10^3 /uL (1.8-7.7) Lymph # (Auto) 2.0 10^3/uL 10^3/ uL (0.8-4.8) Kidder # (Auto) 0.2 10^3/uL 10^3/ uL (0.2-0.9) Eos # (Auto) 0.1 10^3/uL 10^3/ uL (0.0-0.8) Baso # (Auto) 0.0 10^3/uL 10^3/ uL (0.0-0.1) Nucleated RBC % (a uto) 0 % % Nucleated RBCs # 0.0 /100WBC /100W BC PT INR APTT Sodium Potassium Chloride Carbon Dioxide Anion Gap BUN Creatinine GFR Calculation Glucose Calculated Osmolal ity Calcium Ser , Marilyn i-Qnt 0.50 mIU/mL mIU/m L Blood Type O Positive Rho(D) Type Positive Antibody Screen Negative 07/22/21 07/22/21 13:02 13:02 WBC RBC Hgb Hct MCV MCH MCHC RDW Plt Count MPV Neut % (Auto) Lymph % (Auto) Kidder % (Auto) Eos % (Auto) Baso % (Auto) Neut # (Auto) Lymph # (Auto) Kidder # (Auto) Eos # (Auto) Baso # (Auto) Nucleated RBC % (a uto) Nucleated RBCs # PT 14.30 SECONDS SEC ONDS (12.1-14.9) INR 1.08 (0.8-1.2) APTT 27.3 SECONDS SECO NDS (23.9-36.7) Sodium 138 mmol/L mmol/L (136-145) Potassium 3.7 mmol/L mmol/L (3.5-5.1) Chloride 104 mmol/L mmol/L (98-107) Carbon Dioxide 24 mmol/L mmol/L (22-29) Anion Gap 13.7 (5-19) BUN 7 mg/dL mg/dL (6-20) Creatinine 0.6 mg/dL mg/dL (0.5-0.9) GFR Calculation 118.2 mL/min mL/m in (90-130) Glucose 108 mg/dL mg/dL (65-115) Calculated Osmolal ity 285 mOsm/kg mOsm/ kg (285-295) Calcium 8.6 mg/dL mg/dL (8.5-10.5) Ser , Marilyn i-Qnt Blood Type Rho(D) Type Antibody Screen Imaging Data^: Other Imaging: Radiologist's impression: Jaclyn [address] [address]Vqxaxagcdr ReportSigned Patient: Celina Hinton RUnit #: [id number]: 1990Acct# :[id number]/Sex: 31 / FADM Date: 07/22/21Loc: ERRoom/Bed:Attending Dr: Ordering Provider/Ordering MD: Baltazar Claire MD Date of Service: 07/22/21 Procedure(s): US transvaginal [id number] Accession Number(s): [id number] Report Number: [id number] PROCEDURE INFORMATION: Exam: US Pelvis, Transvaginal Exam date and time: 07/22/2021 12:55 PM Age: 31 years old Clinical indication: Condition or disease; Other: Vaginal bleeding; Additional info: Eval for bleeding TECHNIQUE: Imaging protocol: Real-time transvaginal pelvic ultrasound with image documentation. Transvaginal imaging was used for better evaluation of the endometrium, adnexa, and/or cervix. COMPARISON: US pelvic complete* [id number] 04/02/2021 4:17 PM FINDINGS: Uterus: The uterus measures 7.7 x 3.7 x 4.9 cm. Nonspecific subcentimeter echogenic focus posterior to the endometrial fundus. No uterine mass. Endometrial stripe thickness measures 5 mm. Right ovary/adnexa: The right ovary measures 2.1 x 2.7 x 1.6 cm. No mass. Normal ovarian blood flow. Left ovary/adnexa: The left ovary measures 2.4 x 2.5 x 1.1 cm. No mass. Normal ovarian blood flow. Intraperitoneal space: No free fluid. US/US transvaginal [id number] IMPRESSION: No acute findings. Radiation Dose CTDIVOL = (mGy): DLP = (mGy-cm) Dictated By:Dany Wagner DOSigned By:Dany Wagner DOSigned Date/Time:07/22/21 1525DD/ 1255 Discharge Plan Discharge Patient Disposition: Home Clinical Impression: Vaginal bleeding Condition: Stable Prescriptions: New ibuprofen 400 mg tablet 400 mg PO Q8H PRN (Reason: pain) 7 Days Qty: 21 RF: 0 No Action hydrocodone-acetaminophen 5-325 mg tablet 1 - 2 tab PO Q5H PRN (Reason: pain) Qty: 30 RF: 0 tamsulosin 0.4 mg capsule 0.4 mg PO DAILY Qty: 20 RF: 0 Reglan 10 mg tablet 10 mg PO Q6H PRN (Reason: nausea and vomiting) Qty: 15 RF: 0 Discharge Orders: Discharge ED (Routine); Ordered 07/22/21 Ordered By: Baltazar Claire Referrals: Carroll Humphreys MD [Primary Care Provider] - Discharge Diet: Advance as tolerated Discharge Activity: Resume usual activity Patient Instructions: Abnormal (Dysfunctional) Uterine Bleeding (ED) Activity Restrictions/Additional Instructions: Please follow-up with your OB doctor for further evaluation of your symptoms. Come back to the emergency room you have any significant bleeding. Coding Level of Care Code ED Airplane Mechanic Apprentice for Adi Mulligan
[2021-07-22 13:13] LABS: Basophils % 0.3 %; Eosinophils # 0.1 10^3/uL (0.0-0.8); Eosinophils % 1.6 %; Hematocrit 38.8 % (37.0-47.0); Hemoglobin 13.2 g/dL (11.5-15.3); Lymphocytes % 31.7 %; Mean Corpuscular Hemoglobin 30.5 pg (28.0-34.0); Mean Corpuscular Volume 89.6 fl (81-99); Mean Platelet Volume 11.6 fL (7.4-10.4); Monocytes # 0.2 10^3/uL (0.2-0.9); Monocytes % 3.5 %; Neutrophils # 3.99 10^3/uL (1.8-7.7); Neutrophils % 62.6 %; Nucleated Red Blood Cells % 0 %; Platelet Count 240 10^3/cmm (130-400); Red Blood Count 4.33 10^6/uL (4.1-5.3); Red Cell Distribution Width 12.7 % (12.1-15.1); White Blood Count 6.4 10^3/uL (4.0-10.0)
[2021-07-22 13:28] LABS: INR 1.08 (0.8-1.2); Partial Thromboplastin Time 27.3 SECONDS (23.9-36.7)
[2021-07-22 13:40] LABS: Anion Gap 13.7 (5-19); Blood Urea Nitrogen 7 mg/dL (6-20); Calcium 8.6 mg/dL (8.5-10.5); Carbon Dioxide 24 mmol/L (22-29); Chloride 104 mmol/L (98-107); Glomerular Filtration Rate 118.2 mL/min (90-130); Glucose 108 mg/dL (65-115); Osmolality Calculated 285 mOsm/kg (285-295); Potassium 3.7 mmol/L (3.5-5.1); Sodium 138 mmol/L (136-145)
[2021-07-22 14:00] VITALS: BP 115/72; PULSE 63; RESP 18; O2SAT 100
[2021-07-22 14:39] VITALS: BP 108/57; PULSE 85; RESP 18; O2SAT 97
--- NOTE | 2021-07-22 14:40 | PC.NURSE ---
Pt stated no c/o just waiting for results. Pt stated she doesn't known why she feels awful .
[2021-07-22 15:00] VITALS: BP 106/67; PULSE 67; RESP 18; O2SAT 97
[2021-07-22 15:34] VITALS: BP 106/67; PULSE 71; RESP 18; O2SAT 97
== END 2021-07-22 15:36 | disposition home or self-care (01) ==
PROVIDERS: Emergency Provider Emergency Medicine; PCP Family Medicine
DX: N93.9 Abnormal uterine and vaginal bleeding, unspecified (principal)
CPT/HCPCS: 76830; 80048; 84702; 85025; 85610; 85730; 86850; 86900; 99283

== ENCOUNTER → 2021-08-17 14:14 | Outpatient (BNVA) | payer MEDICAID, SELFPAY | PROVIDERS: PCP Family Medicine; Visit Provider Obstetrics & Gynecology | DX: N93.9 Abnormal uterine and vaginal bleeding, unspecified (principal); Z12.4 Encounter for screening for malignant neoplasm of cervix | CPT/HCPCS: 83001; 84146; 84443; 85025; 88175 ==

== ENCOUNTER 2021-10-02 13:13 | Emergency (ER) | payer MEDICAID, SELFPAY ==
[2021-10-02 13:33] VITALS: BP 116/73; PULSE 82; RESP 16; TEMP 36.3; O2SAT 99
--- NOTE | 2021-10-02 14:07 | XR_ITS ---
WS: [id number] XR chest 1V portable [id number] REASON FOR EXAM: chest pain FINDINGS: The heart and mediastinum are within normal limits. Ossified granulomatous changes in both hemithoraces. No acute pulmonary parenchymal or pleural disease. Bony thorax is intact. XR/XR chest 1V portable [id number] IMPRESSION: No acute chest abnormality.
--- NOTE | 2021-10-02 14:07 | ECG_ITS ---
[facility] Test Date: 2021-10-02 Pat Name: Celina Hinton Department: Room: Gender: Female Assistant Distribution Manager: : 1990 Requested By: Xenia Aviles Order Number: [id number] Remington MD: Tegan Culver M.D. Measurements Intervals [place] Rate: 82 P: 53 SC: 131 QRS: 57 QRSD: 92 T: 25 QT: 358 QTc: 419 Interpretive Statements SINUS RHYTHM RSR' in V1, consider normal variant No previous ECG available for comparison Electronically Signed On 10-02-2021 17:11:49 TRIMMING MACHINE OPERATOR by Tegan Culver M.D. [id number] f
--- NOTE | 2021-10-02 19:24 | ED_ITS ---
HPI - General Adult General: Chief complaint: Chest Pain Stated complaint: Chest Pain from front to back Time Seen by Provider: 10/02/21 19:13 History of Present Illness: CC: Chest Pain HPI: This is a [] yo patient hx of [] presenting to the ED complaining of acute sudden onset intermittent sharp chest pain x [] days WITHOUT radiation to the back or shoulders . No associated with shortness of breath, chest pain or dyspnea on exertion. Pain is not tearing in nature and does not radiate to the back. Pain not associated with vomiting or PO intake. Denies any recent sympathomimetic drug use. Patient denies any cough. Denies palpitations, dysphagia, diaphoresis, radiation of pain to bilateral arms, jaw. Denies F/N/V/D. Patient denies any recent immobility, surgery, unilateral leg swelling, or prior PE. Patient denies any orthopnea. Onset: [] days ago Duration: ongoing for the last [] days Location: home Severity: mild/moderate Associated symptoms: Deny chest pain, dyspnea, nausea, rash, palpitations or vomiting Review of Systems Const: Denies: fever(s) or chills Eyes: Denies: change in vision ENMT: Denies: mouth pain Card: Denies: chest pain or palpitations Resp: Denies: dyspnea or non-productive cough GI: Denies: abdominal pain, nausea, vomiting or diarrhea : Denies: dysuria Musc: Denies: extremity pain Skin/Breast: Denies: rash or new lesions Neuro: Denies: weakness in extremities Psych: Reports: other (Normal mood) Alejo/Lymph: Denies: easy bruising PFS ED PFSH: Family History Mother Hyperlipidemia Hypertension Clotting disorder Grandfather Stroke maternal Family/Other Diabetes maternal uncle, maternal aunt Breast cancer maternal great aunts x2, one in 40's, other unknown Denies family history of Colon cancer Ovarian cancer Heart disease Anesthesia complication Bleeding disorder Uterine cancer Thyroid condition Female Reproductive History: Date of last menstrual period: 04/01/21 Physical Exam Const: COMMON NORMALS: alert HENMT: COMMON NORMALS: atraumatic HEAD & SCALP: atraumatic MOUTH: moist mucous membranes not abnormal Eye: COMMON NORMALS: EOMs intact bilaterally and conjunctivae normal CONJUNCTIVA: Yes conjunctivae normal Neck/C-Spine: COMMON NORMALS: full ROM and supple Resp: COMMON NORMALS: normal respiratory effort and clear to auscultation bilaterally AUSCULTATION: clear to auscultation bilaterally Cardio: COMMON NORMALS: regular rate RATE: regular rate GI: COMMON NORMALS: Soft to palpation and non-tender PALPATION: Yes Soft to palpation Extremity: COMMON NORMALS: full ROM Neuro: SENSORIUM/ORIENTATION: Yes alert MOTOR EXAM: No Abnormal motor s trength present and Other motor observations present (no focal motor deficits) Psych: COMMON NORMALS: speech normal SPEECH: Yes normal speech MOOD & AFFECT: Yes euthymic mood Course Vital Signs: Vital signs: Vital Signs Temperature 97.4 F L 10/02/21 13:33 Pulse Rate 82 10/02/21 13:33 Respiratory Rate 16 10/02/21 13:33 Blood Pressure 116/73 10/02/21 13:33 Pulse Oximetry 99 10/02/21 13:33 MDM - General Adult Medical Decision Making [31]yo patient w/ hx of OCP use presenting to the ED with evaluation of new onset sharp chest pain lasting for [] x [] days. HDS, pulse 2+ radially bilaterally, no signs of fluid overload, AAOx3, neuro exam intact. Given History and Exam today I have no suspicion for ACS, Pneumothorax, Pneumonia, Pulmonary Embolus, Tamponade, Aortic Dissection or other emergent problems as a cause for this presentation. Given hx of OCP use, will evaluate for blood clot with Ddimer Workup: ECG, CXR, CBC, BMP, Troponin Interventions: Tylenol 500mg Findings: ECG: No overt evidence of STEMI, hyperacute T waves, localizable STD or T wave inversions. No evidence of Brugada?s sign, delta wave, epsilon wave, significantly prolonged QTc, or malignant arrhythmia. No Q waves. Other Labs unremarkable for emergent problems. CXR: Without PTX, PNA, or widened mediastinum Last Stress Test: never Last Heart Catheterization: never HEART Score: 0 Dimer wnl [9:00pm] On reassessment, the patient is HDS, no complaints of persistent chest pain in the ED after evaluation. ECG is non-ischemic. Workup today is unremarkable.= Doubt ACS/PE or other emergent causes of chest pain. No suspicion for aortic dissection given no widened mediastinum, 2+ upper extremity pulses, or tearing pain. No suspicion for PE given no pleuritic chest pain, recent immobilization or surgery hemoptysis, or other VTE risk factors. EKG is non-ischemic. XR normal. I have given patient follow up with our dependency case manager to be seen by our PCP for evaluation of chest pain. Patient aware of a call from our dependency case manager to schedule for appointment(s) and verbalizes understanding of the importance of following up. Rx: Tylenol 500mg Q6Hrs x 5 days PRN pain Disposition: Discharge. Strict return precautions discussed with the patient with full understanding. Advised patient to follow up promptly with a primary care provider in 24-48 hrs if the patient has persistent symptoms. Given return instructions for any crushing/tearing chest pain, focal weakness, syncope or any new or concerning issues. Lab Data Radiology Impressions Chest X-Ray 10/02/21 14:07 IMPRESSION: No acute chest abnormality. Imaging Data Other Imaging: Radiologist's impression: [address] [address] XRay Report Signed Patient: Celina Hinton Unit #: [id number] : 1990 Age/Sex: 31 / F ADM Date: 10/02/21 Loc: ER Room/Bed: Attending Dr: Ordering Provider/Ordering MD: Xenia Aviles Date of Service: 10/02/21 Procedure(s): XR chest 1V portable [id number] Accession Number(s): [id number] Report Number: [id number] WS: [id number] XR chest 1V portable [id number] REASON FOR EXAM: chest pain FINDINGS: The heart and mediastinum are within normal limits. Ossified granulomatous changes in both hemithoraces. No acute pulmonary parenchymal or pleural disease. Bony thorax is intact. XR/XR chest 1V portable [id number] IMPRESSION: No acute chest abnormality. ? ? Dictated By: Darvin Mayer Jr, MD Signed By: Darvin Mayer Jr, MD Signed Date/Time: 10/02/211512 DD/ 11 Discharge Plan Discharge Patient Disposition: Home Clinical Impression: Chest pain Condition: Stable Prescriptions: New acetaminophen 500 mg tablet 500 mg PO Q6H PRN (Reason: pain) 5 Days Qty: 20 0RF No Action norgestimate-ethinyl estradiol [Sprintec (28)] 0.25-35 mg-mcg tablet 1 tab PO DAILY Qty: 84 0RF Rx Instructions: MARIA M Simpesse Referrals: Carroll Humphreys MD [Primary Care Provider] - Discharge Diet: Advance as tolerated Discharge Activity: Increase activity as tolerated Patient Instructions: Chest Pain (ED) Activity Restrictions/Additional Instructions: Come back to the emergency room if your chest pain worsens, have any fever or chills, worsening shortness of breath, worsening exertional lightheadedness, or any new or concerning complaints. Our dependency case manager will have you follow-up with a primary care provider in the next few days. You would be expected to have a phone call with our dependency case manager who will put you on the schedule. Stand Alone Forms: Work/School Release Coding Level of Care Code ED Lpn Instructor for Adi Fwd Exam Comprehensive
--- NOTE | 2021-10-04 12:51 | DCPLANNER ---
automotive parts manager had message to speak with patient about getting a primary care physician, unable to speak with patient at this time.
== END 2021-10-02 20:41 | disposition home or self-care (01) ==
PROVIDERS: Emergency Provider Emergency Medicine; PCP Family Medicine
DX: Z53.21 Procedure and treatment not carried out due to patient leaving prior to being seen by health care provider (principal)
CPT/HCPCS: 71045; 93005

== ENCOUNTER 2021-12-24 15:00 | Emergency (ER) | payer MEDICAID, SELFPAY ==
[2021-12-24 15:24] VITALS: BP 109/83; PULSE 80; RESP 14; O2SAT 97
--- NOTE | 2021-12-24 15:26 | XR_ITS ---
WS: [id number] Portable AP upright chest, 12/24/2021 Clinical Data: cp Comparison: Portable chest, 10/02/2021 Findings: No nodules, masses or effusions are seen. The heart is normal. The pulmonary vascularity is not increased. No pneumonia or pneumothorax is seen. XR/XR chest 1V portable [id number] Impression: Negative chest.
[2021-12-24 15:34] LABS: Basophils # 0.1 10^3/uL (0.0-0.1); Basophils % 0.7 %; Eosinophils # 0.1 10^3/uL (0.0-0.8); Eosinophils % 1.7 %; Hemoglobin 12.1 g/dL (11.5-15.3); Lymphocytes # 2.8 10^3/uL (0.8-4.8); Mean Corpuscular HGB Conc 33.6 g/dL (30.0-36.0); Mean Corpuscular Hemoglobin 30.6 pg (28.0-34.0); Mean Corpuscular Volume 90.9 fl (81-99); Monocytes # 0.5 10^3/uL (0.2-0.9); Monocytes % 7.5 %; Neutrophils # 3.66 10^3/uL (1.8-7.7); Nucleated Red Blood Cells % 0 %; Platelet Count 386 10^3/cmm (130-400); Red Blood Count 3.96 10^6/uL (4.1-5.3); Red Cell Distribution Width 11.9 % (12.1-15.1); White Blood Count 7.2 10^3/uL (4.0-10.0)
--- NOTE | 2021-12-24 15:37 | ED_ITS ---
Documented by User: SAYDA Lira 12/25/21 07:14 HPI - Chest Pain General: Chief Complaint: Chest Pain Stated Complaint: CHEST PAIN Time Seen by Provider: 12/24/21 15:28 History of Present Illness: Patient is a 31-year-old female who comes to the ED via EMS with chest pain. Patient has had prior episodes like this before and was told it was acid reflux. Symptoms started this morning when she woke up. Pain all throughout this morning was rated a 10 out of 10 and she said it was located in the epigastric and lower part of her chest. She also was feeling some right arm pain as well. The episode resolved later in the morning and then she had another episode of chest pain around 1430 this afternoon. Here in the ED she currently has very minimal pain and rates it a 2 out of 10. She said during the acute episode of pain she was having a little bit of nausea and shortness of breath. She is currently taking pantoprazole daily to help with acid reflux. She does not feel like her symptoms have improved since taking pantoprazole. She says her chest pain symptoms usually occur in the mornings she also noted that after she drinks alcohol it causes chest pain as well. She currently denies any nausea/vomiting, shortness of breath, palpitations, bladder or bowel symptoms. Associated symptoms: Deny abdominal pain, dyspnea, fever(s), nausea, palpitations or vomiting Review of Systems Const: Denies: fever(s), chills or fatigue Eyes: Denies: change in vision or eye discomfort ENMT: Denies: throat pain, odynophagia, nasal discharge or nasal congestion Card: Reports: chest pain; Denies: palpitations, edema, swelling of feet/ankles, dyspnea on exertion or orthopnea Resp: Denies: dyspnea, productive cough or non-productive cough GI: Denies: abdominal pain, nausea, vomiting, diarrhea, constipation or hematochezia : Denies: flank pain, dysuria or hematuria Musc: Denies: neck pain, back pain or extremity swelling Skin/Breast: Denies: rash or new lesions Neuro: Denies: headache(s), numbness in extremities or weakness in extremities PFS ED PFSH: Family History Mother Hyperlipidemia Hypertension Clotting disorder Grandfather Stroke maternal Family/Other Diabetes maternal uncle, maternal aunt Breast cancer maternal great aunts x2, one in 40's, other unknown Denies family history of Colon cancer Ovarian cancer Heart disease Anesthesia complication Bleeding disorder Uterine cancer Thyroid condition Female Reproductive History: Date of last menstrual period: 04/01/21 Physical Exam Const: COMMON NORMALS: patient oriented x3 and alert GENERAL APPEARANCE: cooperative HENMT: COMMON NORMALS: normocephalic HEAD & SCALP: normocephalic MOUTH: Normal oral and palatal mucosa present THROAT: posterior oropharynx normal and uvula midline Eye: COMMON NORMALS: Equal, round and reactive pupils present and conjunctivae normal CONJUNCTIVA: Yes conjunctivae normal PUPIL: Yes Equal, round and reactive pupils present Neck/C-Spine: COMMON NORMALS: supple GENERAL: Yes normal visual inspection Resp: COMMON NORMALS: normal respiratory effort, No retractions, No use of accessory muscles and clear to auscultation bilaterally AUSCULTATION: clear to auscultation bilaterally Cardio: COMMON NORMALS: regular rate, regular rhythm, S1 normal heart sound p resent, S2 normal heart sound present, No gallops present (Cardio), No clicks present (Cardio), No murmurs present (Cardio) and Peripheral pulses 2+ throughout RATE: regular rate RHYTHM: regular rhythm HEART SOUNDS: S1 normal heart sound present and S2 normal heart sound present PERIPHERAL PULSES: Peripheral pulses 2+ throughout GI: COMMON NORMALS: Normal to inspection, nondistended, normoactive bowel sounds present, Soft to palpation and no masses PALPATION: Yes Soft to palpation and Yes Tenderness to palpation present (GI) (Mild epigastric region tenderness) : COMMON NORMALS: Yes no CVA tenderness BLADDER/KIDNEY EXAM: Yes no CVA tenderness Back/Pelvis: COMMON NORMALS: no CVA tenderness Extremity: COMMON NORMALS: normal to inspection and no pedal edema Neuro: COMMON NORMALS: patient oriented x3 and moves all extremities SENSORIUM/ORIENTATION: Yes alert Skin: GENERAL SKIN EXAM: dry skin Course Vital Signs: Vital signs: Vital Signs Pulse Rate 80 12/24/21 15:24 Respiratory Rate 14 12/24/21 15:24 Blood Pressure 109/83 12/24/21 15:24 Pulse Oximetry 97 12/24/21 15:24 MDM - Chest Pain Lab Data I reviewed the patient's lab results. : 12/24/21 14:50 12/24/21 14:50 Radiology Impressions Chest X-Ray 12/24/21 15:26 Impression: Negative chest. Laboratory Results WBC 7.2 10^3/uL (4.0-10.0) 12/24/21 14:50 RBC 3.96 10^6/uL (4.1-5.3) L 12/24/21 14:50 Hgb 12.1 g/dL (11.5-15.3) 12/24/21 14:50 Hct 36.0 % (37.0-47.0) L 12/24/21 14:50 MCV 90.9 fl (81-99) 12/24/21 14:50 MCH 30.6 pg (28.0-34.0) 12/24/21 14:50 MCHC 33.6 g/dL (30.0-36.0) 12/24/21 14:50 RDW 11.9 % (12.1-15.1) L 12/24/21 14:50 Plt Count 386 10^3/cmm (130-400) 12/24/21 14:50 MPV 11.0 fL (7.4-10.4) H 12/24/21 14:50 Neut % (Auto) 51.0 % 12/24/21 14:50 Lymph % (Auto) 39.0 % 12/24/21 14:50 [place] % (Auto) 7.5 % 12/24/21 14:50 Eos % (Auto) 1.7 % 12/24/21 14:50 Baso % (Auto) 0.7 % 12/24/21 14:50 Neut # (Auto) 3.66 10^3/uL (1.8-7.7) 12/24/21 14:50 Lymph # (Auto) 2.8 10^3/uL (0.8-4.8) 12/24/21 14:50 [place] # (Auto) 0.5 10^3/uL (0.2-0.9) 12/24/21 14:50 Eos # (Auto) 0.1 10^3/uL (0.0-0.8) 12/24/21 14:50 Baso # (Auto) 0.1 10^3/uL (0.0-0.1) 12/24/21 14:50 Nucleated RBC % (auto) 0 % 12/24/21 14:50 Nucleated RBCs # 0.0 /100WBC 12/24/21 14:50 Sodium 136 mmol/L (136-145) 12/24/21 14:50 Potassium 4.0 mmol/L (3.5-5.1) 12/24/21 14:50 Chloride 100 mmol/L (98-107) 12/24/21 14:50 Carbon Dioxide 23 mmol/L (22-29) 12/24/21 14:50 Anion Gap 17.0 (5-19) 12/24/21 14:50 BUN 14 mg/dL (6-20) 12/24/21 14:50 Creatinine 0.6 mg/dL (0.5-0.9) 12/24/21 14:50 GFR Calculation 118.2 mL/min (90-130) 12/24/21 14:50 Glucose 80 mg/dL (65-115) 12/24/21 14:50 Calculated Osmolality 281 mOsm/kg (285-295) L 12/24/21 14:50 Calcium 8.7 mg/dL (8.5-10.5) 12/24/21 14:50 Total Bilirubin 0.4 mg/dL (0.15-1.2) 12/24/21 14:50 AST 16 U/L (0-32) 12/24/21 14:50 ALT 7 U/L (0-33) 12/24/21 14:50 Alkaline Phosphatase 64 IU/L (35-105) 12/24/21 14:50 Troponin T Baseline 6 ng/L (0-10) 12/24/21 14:50 Troponin T 120 Minute 6.00 ng/L (0-10) 12/24/21 16:50 Delta Troponin T 0 ABS# (0-10) 12/24/21 16:50 Total Protein 7.2 g/dL (6.6-8.7) 12/24/21 14:50 Albumin 5.2 g/dL (3.5-5.2) 12/24/21 14:50 Globulin 2.0 g/dL (1.3-4.6) 12/24/21 14:50 HCG, Qual Negative (Negative) 12/24/21 14:50 Discharge Plan Discharge Patient Disposition: Home Clinical Impression: Non-cardiac chest pain Condition: Stable Prescriptions: No Action Tylenol Ex Str Rapid Release 500 mg Tablet 1,000 mg PO Q6H PRN (Reason: Pain) 0RF omeprazole 20 mg capsule,delayed release(DR/EC) 40 mg PO QAM 0RF Discharge Orders: Discharge ED (Routine); Ordered 12/24/21 Ordered By: Xenia Aviles Referrals: Carroll Humphreys MD [Primary Care Provider] - Sign Out Sign Out Data: Patient Sign Out occurred on 12/24/21 at 17:18. Patient's care was discussed, and care was transferred from to SAYDA Sky. Coding Level of Care Code ED Driver Medic for Chg Fwd Exam Comprehensive Documented by User: SAYDA Sky 12/24/21 19:30 HPI - Chest Pain General: Chief Complaint: Chest Pain Stated Complaint: CHEST PAIN Time Seen by Provider: 12/24/21 15:28 PFSH ED PFSH: Family History Mother Hyperlipidemia Hypertension Clotting disorder Grandfather Stroke maternal Family/Other Diabetes maternal uncle, maternal aunt Breast cancer maternal great aunts x2, one in 40's, other unknown Denies family history of Colon cancer Ovarian cancer Heart disease Anesthesia complication Bleeding disorder Uterine cancer Thyroid condition Course Vital Signs: Vital signs: Vital Signs Pulse Rate 80 12/24/21 15:24 Respiratory Rate 14 12/24/21 15:24 Blood Pressure 109/83 12/24/21 15:24 Pulse Oximetry 97 12/24/21 15:24 MDM - Chest Pain Medical Decision Making I assumed care for patient from Terry Avila PA-C. Patient is a 31-year-old female who tells me she has had intermittent epigastric/lower chest pains over the past 6 months or so. Patient states she first noticed this discomfort around [place] time after shooting a shot of hard alcohol. Patient tells me since that time she has had countless episodes of pain. He does not feel like discomfort is worse with position, movement, eating, exertion or stress/anxiety. She does tell me the only thing that she knows of that can elicit the pain is hard alcohol-she does not partake of this frequently. She has not had any hematemesis or melanotic stools. Has been on omeprazole daily over the past 2 months without any relief of her symptoms. She has seen her PCP Dr. Humphreys for this and has reportedly been referred to cardiology. Patient's vital signs have been normal here. Her work-up including EKG, CXR, and troponins are all unremarkable. Patient is stable for discharge from an ED standpoint. Recommend continuing to follow-up with her PCP. Lab Data : 12/24/21 14:50 12/24/21 14:50 Radiology Impressions Chest X-Ray 12/24/21 15:26 Impression: Negative chest. Laboratory Results WBC 7.2 10^3/uL (4.0-10.0) 12/24/21 14:50 RBC 3.96 10^6/uL (4.1-5.3) L 12/24/21 14:50 Hgb 12.1 g/dL (11.5-15.3) 12/24/21 14:50 Hct 36.0 % (37.0-47.0) L 12/24/21 14:50 MCV 90.9 fl (81-99) 12/24/21 14:50 MCH 30.6 pg (28.0-34.0) 12/24/21 14:50 MCHC 33.6 g/dL (30.0-36.0) 12/24/21 14:50 RDW 11.9 % (12.1-15.1) L 12/24/21 14:50 Plt Count 386 10^3/cmm (130-400) 12/24/21 14:50 MPV 11.0 fL (7.4-10.4) H 12/24/21 14:50 Neut % (Auto) 51.0 % 12/24/21 14:50 Lymph % (Auto) 39.0 % 12/24/21 14:50 [place] % (Auto) 7.5 % 12/24/21 14:50 Eos % (Auto) 1.7 % 12/24/21 14:50 Baso % (Auto) 0.7 % 12/24/21 14:50 Neut # (Auto) 3.66 10^3/uL (1.8-7.7) 12/24/21 14:50 Lymph # (Auto) 2.8 10^3/uL (0.8-4.8) 12/24/21 14:50 [place] # (Auto) 0.5 10^3/uL (0.2-0.9) 12/24/21 14:50 Eos # (Auto) 0.1 10^3/uL (0.0-0.8) 12/24/21 14:50 Baso # (Auto) 0.1 10^3/uL (0.0-0.1) 12/24/21 14:50 Nucleated RBC % (auto) 0 % 12/24/21 14:50 Nucleated RBCs # 0.0 /100WBC 12/24/21 14:50 Sodium 136 mmol/L (136-145) 12/24/21 14:50 Potassium 4.0 mmol/L (3.5-5.1) 12/24/21 14:50 Chloride 100 mmol/L (98-107) 12/24/21 14:50 Carbon Dioxide 23 mmol/L (22-29) 12/24/21 14:50 Anion Gap 17.0 (5-19) 12/24/21 14:50 BUN 14 mg/dL (6-20) 12/24/21 14:50 Creatinine 0.6 mg/dL (0.5-0.9) 12/24/21 14:50 GFR Calculation 118.2 mL/min (90-130) 12/24/21 14:50 Glucose 80 mg/dL (65-115) 12/24/21 14:50 Calculated Osmolality 281 mOsm/kg (285-295) L 12/24/21 14:50 Calcium 8.7 mg/dL (8.5-10.5) 12/24/21 14:50 Total Bilirubin 0.4 mg/dL (0.15-1.2) 12/24/21 14:50 AST 16 U/L (0-32) 12/24/21 14:50 ALT 7 U/L (0-33) 12/24/21 14:50 Alkaline Phosphatase 64 IU/L (35-105) 12/24/21 14:50 Troponin T Baseline 6 ng/L (0-10) 12/24/21 14:50 Troponin T 120 Minute 6.00 ng/L (0-10) 12/24/21 16:50 Delta Troponin T 0 ABS# (0-10) 12/24/21 16:50 Total Protein 7.2 g/dL (6.6-8.7) 12/24/21 14:50 Albumin 5.2 g/dL (3.5-5.2) 12/24/21 14:50 Globulin 2.0 g/dL (1.3-4.6) 12/24/21 14:50 HCG, Qual Negative (Negative) 12/24/21 14:50 Discharge Plan Discharge Patient Disposition: Home Clinical Impression: Non-cardiac chest pain Condition: Stable Prescriptions: No Action Tylenol Ex Str Rapid Release 500 mg Tablet 1,000 mg PO Q6H PRN (Reason: Pain) 0RF omeprazole 20 mg capsule,delayed release(DR/EC) 40 mg PO QAM 0RF Discharge Orders: Discharge ED (Routine); Ordered 12/24/21 Ordered By: Xenia Aviles Referrals: Carroll Humphreys MD [Primary Care Provider] - Sign Out Sign Out Data: Patient Sign Out occurred on 12/24/21 at 17:18. Patient's care was discussed, and care was transferred from to SAYDA Sky. Coding Level of Care Code ED Driver Medic for Chg Fwd Exam Comprehensive Documented by User: Abe Blair DO 12/25/21 05:59 HPI - Chest Pain General: Chief Complaint: Chest Pain Stated Complaint: CHEST PAIN Time Seen by Provider: 12/24/21 15:28 [facility] ED PFSH: Family History Mother Hyperlipidemia Hypertension Clotting disorder Grandfather Stroke maternal Family/Other Diabetes maternal uncle, maternal aunt Breast cancer maternal great aunts x2, one in 40's, other unknown Denies family history of Colon cancer Ovarian cancer Heart disease Anesthesia complication Bleeding disorder Uterine cancer Thyroid condition Course Vital Signs: Vital signs: Vital Signs Pulse Rate 80 12/24/21 15:24 Respiratory Rate 14 12/24/21 15:24 Blood Pressure 109/83 12/24/21 15:24 Pulse Oximetry 97 12/24/21 15:24 MDM - Chest Pain Medical Decision Making I assumed care for patient from Terry Avila PA-C. Patient is a 31-year-old female who tells me she has had intermittent epigastric/lower chest pains over the past 6 months or so. Patient states she first noticed this discomfort around [place] time after shooting a shot of hard alcohol. Patient tells me since that time she has had countless episodes of pain. He does not feel like discomfort is worse with position, movement, eating, exertion or stress/anxiety. She does tell me the only thing that she knows of that can elicit the pain is hard alcohol-she does not partake of this frequently. She has not had any hemat emesis or melanotic stools. Has been on omeprazole daily over the past 2 months without any relief of her symptoms. She has seen her PCP Dr. Humphreys for this and has reportedly been referred to cardiology. Patient's vital signs have been normal here. Her work-up including EKG, CXR, and troponins are all unremarkable. Patient is stable for discharge from an ED standpoint. Recommend continuing to follow-up with her PCP. Chart reviewed and patient discussed with midlevel. Agree with assessment and plan. Lab Data : 12/24/21 14:50 12/24/21 14:50 Radiology Impressions Chest X-Ray 12/24/21 15:26 Impression: Negative chest. Laboratory Results WBC 7.2 10^3/uL (4.0-10.0) 12/24/21 14:50 RBC 3.96 10^6/uL (4.1-5.3) L 12/24/21 14:50 Hgb 12.1 g/dL (11.5-15.3) 12/24/21 14:50 Hct 36.0 % (37.0-47.0) L 12/24/21 14:50 MCV 90.9 fl (81-99) 12/24/21 14:50 MCH 30.6 pg (28.0-34.0) 12/24/21 14:50 MCHC 33.6 g/dL (30.0-36.0) 12/24/21 14:50 RDW 11.9 % (12.1-15.1) L 12/24/21 14:50 Plt Count 386 10^3/cmm (130-400) 12/24/21 14:50 MPV 11.0 fL (7.4-10.4) H 12/24/21 14:50 Neut % (Auto) 51.0 % 12/24/21 14:50 Lymph % (Auto) 39.0 % 12/24/21 14:50 [place] % (Auto) 7.5 % 12/24/21 14:50 Eos % (Auto) 1.7 % 12/24/21 14:50 Baso % (Auto) 0.7 % 12/24/21 14:50 Neut # (Auto) 3.66 10^3/uL (1.8-7.7) 12/24/21 14:50 Lymph # (Auto) 2.8 10^3/uL (0.8-4.8) 12/24/21 14:50 [place] # (Auto) 0.5 10^3/uL (0.2-0.9) 12/24/21 14:50 Eos # (Auto) 0.1 10^3/uL (0.0-0.8) 12/24/21 14:50 Baso # (Auto) 0.1 10^3/uL (0.0-0.1) 12/24/21 14:50 Nucleated RBC % (auto) 0 % 12/24/21 14:50 Nucleated RBCs # 0.0 /100WBC 12/24/21 14:50 Sodium 136 mmol/L (136-145) 12/24/21 14:50 Potassium 4.0 mmol/L (3.5-5.1) 12/24/21 14:50 Chloride 100 mmol/L (98-107) 12/24/21 14:50 Carbon Dioxide 23 mmol/L (22-29) 12/24/21 14:50 Anion Gap 17.0 (5-19) 12/24/21 14:50 BUN 14 mg/dL (6-20) 12/24/21 14:50 Creatinine 0.6 mg/dL (0.5-0.9) 12/24/21 14:50 GFR Calculation 118.2 mL/min (90-130) 12/24/21 14:50 Glucose 80 mg/dL (65-115) 12/24/21 14:50 Calculated Osmolality 281 mOsm/kg (285-295) L 12/24/21 14:50 Calcium 8.7 mg/dL (8.5-10.5) 12/24/21 14:50 Total Bilirubin 0.4 mg/dL (0.15-1.2) 12/24/21 14:50 AST 16 U/L (0-32) 12/24/21 14:50 ALT 7 U/L (0-33) 12/24/21 14:50 Alkaline Phosphatase 64 IU/L (35-105) 12/24/21 14:50 Troponin T Baseline 6 ng/L (0-10) 12/24/21 14:50 Troponin T 120 Minute 6.00 ng/L (0-10) 12/24/21 16:50 Delta Troponin T 0 ABS# (0-10) 12/24/21 16:50 Total Protein 7.2 g/dL (6.6-8.7) 12/24/21 14:50 Albumin 5.2 g/dL (3.5-5.2) 12/24/21 14:50 Globulin 2.0 g/dL (1.3-4.6) 12/24/21 14:50 HCG, Qual Negative (Negative) 12/24/21 14:50 Discharge Plan Discharge Patient Disposition: Home Clinical Impression: Non-cardiac chest pain Condition: Stable Prescriptions: No Action Tylenol Ex Str Rapid Release 500 mg Tablet 1,000 mg PO Q6H PRN (Reason: Pain) 0RF omeprazole 20 mg capsule,delayed release(DR/EC) 40 mg PO QAM 0RF Discharge Orders: Discharge ED (Routine); Ordered 12/24/21 Ordered By: Xenia Aviles Referrals: Carroll Humphreys MD [Primary Care Provider] - Sign Out Sign Out Data: Patient Sign Out occurred on 12/24/21 at 17:18. Patient's care was discussed, and care was transferred from to SAYDA Sky. Coding Level of Care Code ED Driver Medic for Chg Fwd Exam Comprehensive
--- NOTE | 2021-12-24 15:51 | PC.PHAR ---
pt states she stop taking her control 2 months ago-notes are made in the pharmacy comments
[2021-12-24 15:53] LABS: HCG, Serum Qual Negative (Negative)
[2021-12-24 16:02] LABS: Alanine Aminotransferase 7 U/L (0-33); Albumin Level 5.2 g/dL (3.5-5.2); Alkaline Phosphatase 64 IU/L (35-105); Aspartate Amino Transferase 16 U/L (0-32); Blood Urea Nitrogen 14 mg/dL (6-20); Calcium 8.7 mg/dL (8.5-10.5); Carbon Dioxide 23 mmol/L (22-29); Chloride 100 mmol/L (98-107); Glomerular Filtration Rate 118.2 mL/min (90-130); Glucose 80 mg/dL (65-115); Osmolality Calculated 281 mOsm/kg (285-295); Sodium 136 mmol/L (136-145); Total Bilirubin 0.4 mg/dL (0.15-1.2); Total Protein 7.2 g/dL (6.6-8.7)
[2021-12-24 16:16] LABS: Troponin(5th) Baseline 6 ng/L (0-10)
[2021-12-24 17:23] LABS: Troponin 5 2HR Delta 0 ABS# (0-10)
--- NOTE | 2021-12-24 17:26 | ECG_ITS ---
[facility] Test Date: 2021-12-24 Pat Name: Celina Hinton Department: Room: Gender: Female Machine Etcher: : 1990 Requested By: Terry Avila Order Number: [id number] Rem[place] MD: Niels Schilling M.D. Measurements Intervals [place] Rate: 65 P: 27 CO: 136 QRS: 23 QRSD: 91 T: 23 QT: 402 QTc: 418 Interpretive Statements SINUS RHYTHM POSSIBLE RIGHT VENTRICULAR CONDUCTION DELAY [RSR (QR) IN V1/V2] Compared to ECG 10/02/2021 13:36:46 No significant changes Electronically Signed On 12-24-2021 22:12:00 CDT by Niels Schilling M.D. [email or web address]
== END 2021-12-24 18:46 | disposition home or self-care (01) ==
PROVIDERS: Physician Assistant; Emergency Provider Physician Assistant; PCP Family Medicine
DX: R07.89 Other chest pain (principal)
CPT/HCPCS: 71045; 80053; 84484; 84703; 85025; 93005; 99283

== ENCOUNTER → 2022-03-10 12:07 | Outpatient (BNVA) | payer MEDICAID, SELFPAY | PROVIDERS: PCP Family Medicine; Visit Provider Registered Nurse Neonatal Intensive Care | DX: J02.0 Streptococcal pharyngitis (principal) | CPT/HCPCS: 87880 ==

== ENCOUNTER → 2022-08-12 11:47 | Outpatient (BNVA) | payer OTHER, SELFPAY | PROVIDERS: PCP Family Medicine; Visit Provider Family Medicine Adult Medicine | DX: R39.9 Unspecified symptoms and signs involving the genitourinary system (principal); N39.0 Urinary tract infection, site not specified; Z98.890 Other specified postprocedural states | CPT/HCPCS: 81000 ==

== ENCOUNTER 2023-07-03 23:03 | Emergency (ER) | payer MEDICAID, SELFPAY ==
[2023-07-03 23:13] VITALS: BP 122/74; PULSE 93; RESP 16; TEMP 36.8; O2SAT 100
--- NOTE | 2023-07-03 23:45 | ED_ITS ---
HPI - Female Genitourinary General: Chief complaint: Urogenital-Female Stated complaint: Possible Kidney stones Time Seen by Provider: 07/03/23 23:44 Source: patient Mode of arrival: ambulatory Limitations: no limitations History of Present Illness: Patient presents emergency department today for evaluation treatment of left CVA and left flank pain. Patient noticed onset of pain earlier today which has progressively gotten worse through the day. She has not had nausea or vomiting yet. No visible hematuria. She does have a significant past medical history of kidney stones and chart review shows documented past medical history of for lithotripsy. Patient is last evaluation here in the emergency department for kidney stones was a couple of years ago. Patient states she has passed multiple kidney stones since that time but has not required coming into the emergency department. Review of Systems General: Reports: 10 or more systems reviewed and unremarkable except in HPI and below PFSH ED PFSH: Medical History Psychiatric care Urinary tract infection Surgical History H/O lithotripsy x4 H/O tubal ligation S/P cholecystectomy Family History Mother Hyperlipidemia Hypertension Clotting disorder Grandfather Stroke maternal Family/Other Diabetes maternal uncle, maternal aunt Breast cancer maternal great aunts x2, one in 40's, other unknown Denies family history of Colon cancer Ovarian cancer Heart disease Anesthesia complication Bleeding disorder Uterine cancer Thyroid disease Physical Exam Const: COMMON NORMALS: patient oriented x3 and alert OTHER: Patient is pleasant and social but is obviously uncomfortable as she is constantly moving and rocking back and forth due to pain. HENMT: COMMON NORMALS: normocephalic, atraumatic and hearing grossly normal bilaterally HEAD & SCALP: normocephalic and atraumatic Eye: COMMON NORMALS: Equal, round and reactive pupils present, EOMs intact bilaterally and conjunctivae normal CONJUNCTIVA: Yes conjunctivae normal PUPIL: Yes Equal, round and reactive pupils present Neck/C-Spine: COMMON NORMALS: full ROM and no JVD Lymph: LYMPHATIC: no lymphadenopathy noted Resp: COMMON NORMALS: normal respiratory effort, No retractions and No use of accessory muscles Cardio: COMMON NORMALS: no JVD and regular rate RATE: regular rate GI: OTHER: Abdomen is soft. Nontender to the left lateral abdomen on palpation. Back/Pelvis: OTHER: Patient has pain just slightly lateral from the left CVA. Pain radiates down to the left flank. Nontender in the low back. Patient is independently ambulatory and weightbearing here in the emergency department. Neuro: COMMON NORMALS: patient oriented x3 SENSORIUM/ORIENTATION: Yes alert Psych: COMMON NORMALS: mental status grossly normal, Normal thought process present, cooperative and normal affect THOUGHT PROCESS: Normal thought proces s present Skin: COMMON NORMALS: no rashes or lesions noted and turgor normal GENERAL SKIN EXAM: no rashes or lesions noted and turgor normal Course Vital Signs: Vital signs: Vital Signs Temperature 98.2 F 07/03/23 23:13 Pulse Rate 93 07/03/23 23:13 Respiratory Rate 16 07/03/23 23:13 Blood Pressure 122/74 07/03/23 23:13 Pulse Oximetry 100 07/03/23 23:13 Oxygen Delivery Me thod Room Air 07/03/23 23:13 MDM - Female Medical Decision Making Lab work is generally unremarkable. Urinalysis reveals no acute concerns for infection or marcos hematuria. CT does show dilatation of the proximal ureter and hydronephrosis on the left side consistent with a recently occluding stone. However, does appear the stone has passed at this time as it was not visible on the rest of the CT scan. I discussed with patient. As she has had kidney stones in the past, she is aware she may experience discomfort for the next couple of days. Encouraged her to increase her clear fluid intake. Toradol and Zofran provided for symptom relief during this time. However, return precautions given for any return or worsening of symptoms. Patient verbalized understanding and agreement to treatment plan. Differential Diagnosis Likely abdominal pain and calculus of kidney; Unlikely acute appendicitis, constipation, diverticulitis, gastroenteritis, pancreatitis or small bowel obstruction Lab Data 07/03/23 23:47 07/03/23 23:47 Radiology Impressions Abdomen/Pelvis CT 07/03/23 23:56 IMPRESSION: 1. Stable left nonobstructing renal calyceal stones. 2. Interval resolution of left UPJ stone and left hydronephrosis. Laboratory Results WBC 8.10 10^3/uL (3.29-11.43) 07/03/23 23:47 RBC 3.79 10^6/uL (3.85-5.65) L 07/03/23 23:47 Hgb 11.40 g/dL (11.27-16.99) 07/03/23 23:47 Hct 35.6 % (36-47) L 07/03/23 23:47 MCV 93.9 fl (85-98) 07/03/23 23: MCH 30.1 pg (27-33) 07/03/23 23: MCHC 32.0 g/dL (30-55) 07/03/23 23:47 RDW 12.5 % (12.1-15.1) 07/03/23 23: Plt Count 324 10^3/cmm (157-399) 07/03/23 23: MPV 10.9 fL (7.4-10.4) H 07/03/23 23:47 Neut % (Auto) 54.6 % 07/03/23 23:47 Lymph % (Auto) 34.0 % 07/03/23 23:47 [place] % (Auto) 8.0 % 07/03/23 23:47 Eos % (Auto) 2.1 % 07/03/23 23: Baso % (Auto) 0.9 % 07/03/23: Neut # (Auto) 4.43 10^3/uL (1.8-7.7) 07/03/23 23:47 Lymph # (Auto) 2.8 10^3/uL (0.8-4.8) 07/03/23 23:47 [place] # (Auto) 0.7 10^3/uL (0.2-0.9) 07/03/23 23:47 Eos # (Auto) 0.2 10^3/uL (0.0-0.8) 07/03/23 23: Baso # (Auto) 0.1 10^3/uL (0.0-0.1) 07/03/23 23:47 Nucleated RBC % (auto) 0 % 07/03/23: Nucleated RBCs # 0.0 /100WBC 07/03/23 23: Sodium 140 mmol/L (136-145) 07/03/23 23: Potassium 3.9 mmol/L (3.5-5.1) 07/03/23 23:47 Chloride 105 mmol/L (98-107) 07/03/23 23:47 Carbon Dioxide 25 mmol/L (22-29) 07/03/23 23:47 Anion Gap 13.9 (5-19) 07/03/23 23:47 BUN 11 mg/dL (6-20) 07/03/23 23:47 Creatinine 0.7 mg/dL (0.5-0.9) 07/03/23 23:47 GFR Calculation 97.6 mL/min (90-130) 07/03/23 23:47 Glucose 92 mg/dL (65-115) 07/03/23 23:47 Calculated Osmolality 289 mOsm/kg (285-295) 07/03/23 23:47 Calcium 9.1 mg/dL (8.5-10.5) 07/03/23 23:47 Total Bilirubin 0.2 mg/dL (0.15-1.2) 07/03/23 23:47 AST 13 U/L (0-32) 07/03/23 23:47 ALT 8 U/L (0-33) 07/03/23 23:47 Alkaline Phosphatase 72 U/L (35-105) 07/03/23 23:47 Total Protein 6.7 g/dL (6.6-8.7) 07/03/23 23:47 Albumin 4.4 g/dL (3.5-5.2) 07/03/23 23:47 Globulin 2.3 g/dL (1.3-4.6) 07/03/23 23:47 Lipase 30 U/L (13-60) 07/03/23 23:47 HCG, Qual Negative (Negative) 07/03/23 23:47 Urine Color Yellow (Yellow) 07/03/23 23:44 Urine Appearance Hazy (CLEAR) A 07/03/23 23:44 Urine pH 7 (5-7) 07/03/23:44 Ur Specific [place] 1.010 (1.005-1.030) 07/03/23 23:44 Urine Protein Neg (Negative) 07/03/23 23:44 Urine Glucose (UA) Norm (Normal) 07/03/23 23: Urine Ketones Negative (Negative) 07/03/23 23: Urine Blood Neg (Negative) 11/02/23 23:44 Urine Nitrate Negative (Negative) 07/03/23 23:44 Urine Bilirubin Neg (Negative) 07/03/23 23:44 Urine Urobilinogen Neg mg/dL (Negative) 07/03/23 23:44 Ur Leukocyte Esterase Negative (Negative) 07/03/23 23:44 Urine RBC None /hpf (0-2) 11 23:44 Urine WBC None /hpf (0-5) 07/03/23 23:44 Ur Squamous Epith Cells 0-4 /hpf (0-5) H 07/03/23 23:44 Amorphous Sediment 2+ /hpf 07/03/23 23:44 Urine Bacteria Trace /hpf (NONE) 07/03/23 23:44 All radiology interpretation(s) finalized by discharge Discharge Plan Discharge Patient Disposition: Home Clinical Impression: Hydronephrosis, H/O lithotripsy, Kidney stone on left side Condition: Stable Prescriptions: New ketorolac 10 mg tablet 10 mg PO Q6H PRN (Reason: pain) 3 Days Qty: 12 0RF ondansetron 4 mg tablet,disintegrating 4 mg PO Q8H 5 Days Qty: 15 0RF No Action pantoprazole 20 mg tablet,delayed release (DR/EC) 20 mg PO DAILY PRN trazodone 50 mg tablet 100 mg PO DAILY PRN hydroxyzine HCl 25 mg tablet 25 mg PO TID PRN venlafaxine 150 mg capsule,extended release 24hr 150 mg PO DAILY buspirone 5 mg tablet 5 mg PO BID PRN (Reason: anxiety) 30 Days Qty: 60 3RF Tylenol Ex Str Rapid Release 500 mg Tablet 1,000 mg PO Q6H PRN (Reason: Pain) Discharge Orders: Discharge ED (Routine); Ordered 07/04/23 Ordered By: Melody Sewell Referrals: Carroll Humphreys MD [Primary Care Provider] - Discharge Diet: Usual diet Discharge Activity: Increase activity as tolerated Patient Instructions: Kidney Stones (ED), Ureteral Stones (ED) Activity Restrictions/Additional Instructions: Lab work and urinalysis today are stable but CT confirms recent passing of stone. There is some dilatation of the upper portion of your ureter and your kidney indicating for short time, this area was occluded. However, stone was able to be passed and for the next couple of days, you may notice continued discomfort in your left mid back and flank region. I provided you some medication to help with pain and nausea but is very important you stay [id number] the next several days. Continue to watch for any c hange or worsening of pain, recurrence of blood, nausea/vomiting, or fever-all of which should be seen and reevaluated back here in the emergency department. Coding Level of Care Code ED Securities Settlement Processor for Aid Mulligan
[2023-07-03 23:50] LABS: Basophils # 0.1 10^3/uL (0.0-0.1); Basophils % 0.9 %; Eosinophils # 0.2 10^3/uL (0.0-0.8); Eosinophils % 2.1 %; Hematocrit 35.6 % (36-47); Lymphocytes # 2.8 10^3/uL (0.8-4.8); Mean Corpuscular Hemoglobin 30.1 pg (27-33); Mean Corpuscular Volume 93.9 fl (85-98); Mean Platelet Volume 10.9 fL (7.4-10.4); Monocytes # 0.7 10^3/uL (0.2-0.9); Neutrophils # 4.43 10^3/uL (1.8-7.7); Neutrophils % 54.6 %; Nucleated Red Blood Cells % 0 %; Platelet Count 324 10^3/cmm (157-399); Red Blood Count 3.79 10^6/uL (3.85-5.65); Red Cell Distribution Width 12.5 % (12.1-15.1)
--- NOTE | 2023-07-03 23:56 | CTR_ITS ---
PROCEDURE INFORMATION: Exam: CT Abdomen And Pelvis Without Contrast Exam date and time: 07/04/2023 12:15 AM Age: 33 years old Clinical indication: Abdominal pain; Flank; Left; Prior surgery; Surgery date: 6+ months; Surgery type: Gb tubal; Additional info: Left flank pain, HX stones with HX lithotripsy TECHNIQUE: Imaging protocol: Computed tomography of the abdomen and pelvis without contrast. Radiation optimization: All CT scans at this facility use at least one of these dose optimization techniques: automated exposure control; mA and/or kV adjustment per patient size (includes targeted exams where dose is matched to clinical indication); or iterative reconstruction. REPORTING DATA: Count of CT and Cardiac NM exams in prior 12 months: This patient has received 0 known CTs and 0 known cardiac nuclear medicine studies in the 12 months prior to the current study. COMPARISON: CT kidney stone [id number] 06/22/2021 12:32 PM RADIATION DOSE METRICS: Total DLP (mGy-cm): 567.27 FINDINGS: Liver: Normal. No mass. Gallbladder and bile ducts: Stable cholecystectomy. Pancreas: Normal. No ductal dilation. Spleen: Normal. No splenomegaly. Adrenal glands: Normal. No mass. Kidneys and ureters: Stable left nonobstructing renal calyceal stones. Interval resolution of left UPJ stone and left hydronephrosis. Stomach and bowel: Unremarkable. No obstruction. No mucosal thickening. Appendix: Normal appendix. Intraperitoneal space: Unremarkable. No free air. No significant fluid collection. Vasculature: Unremarkable. No abdominal aortic aneurysm. Lymph nodes: Unremarkable. No enlarged lymph nodes. Urinary bladder: Unremarkable as visualized. Reproductive: Unremarkable as visualized. Bones/joints: Unremarkable. No acute fracture. Soft tissues: Unilateral or bilateral nipple metallic jewelry with or without metallic artifact. Metallic jewelry in the region of the umbilicus with or without metallic artifact. CT/CT kidney stone [id number] IMPRESSION: 1. Stable left nonobstructing renal calyceal stones. 2. Interval resolution of left UPJ stone and left hydronephrosis.
[2023-07-04 00:01] LABS: Add Urine Microscopic? YES; Amorphous Sediment Urine 2+ /hpf; Bacteria Urine TRACE /hpf; Bilirubin Urine Neg (Negative); Blood Urine Neg (Negative); Glucose Urine UA Norm (Normal); Ketones Urine Negative (Negative); Leukocyte Esterase Urine Negative (Negative); Nitrate Urine Negative (Negative); Protein Urine Neg (Negative); Squamous Epithelial Cell Urine 0-4 /hpf (0-5); Urine Appearance Hazy (CLEAR); Urine Color Yellow (Yellow); Urobilinogen Urine Neg (Negative); pH Urine 7 (5-7)
[2023-07-04 00:02] LABS: Add Urine Culture? No
[2023-07-04] MEDS: tamsulosin 0.4 mg Capsule PO (00:04)
[2023-07-04] MEDS: ketorolac 30 mg/mL INJ IVP (00:04)
[2023-07-04] MEDS: metoclopramide 5 mg/mL SDV 2 mL 10 MG IVP (00:04)
[2023-07-04] MEDS: sodium chloride 0.9% 1,000 ML 999 ML IV (00:07)
[2023-07-04 00:08] LABS: HCG, Serum Qual Negative (Negative)
[2023-07-04 00:19] LABS: Alanine Aminotransferase 8 U/L (0-33); Albumin Level 4.4 g/dL (3.5-5.2); Alkaline Phosphatase 72 U/L (35-105); Anion Gap 13.9 (5-19); Aspartate Amino Transferase 13 U/L (0-32); Blood Urea Nitrogen 11 mg/dL (6-20); Calcium 9.1 mg/dL (8.5-10.5); Carbon Dioxide 25 mmol/L (22-29); Chloride 105 mmol/L (98-107); Creatinine Clr Calc Pharmacy 106.0879; Globulin 2.3 g/dL (1.3-4.6); Glomerular Filtration Rate 97.6 mL/min (90-130); Glucose 92 mg/dL (65-115); Lipase 30 U/L (13-60); Osmolality Calculated 289 mOsm/kg (285-295); Potassium 3.9 mmol/L (3.5-5.1); Sodium 140 mmol/L (136-145); Total Bilirubin 0.2 mg/dL (0.15-1.2); Total Protein 6.7 g/dL (6.6-8.7)
[2023-07-04 00:58] VITALS: BP 122/74; PULSE 93; RESP 16; TEMP 36.8; O2SAT 100
== END 2023-07-04 00:58 | disposition home or self-care (01) ==
PROVIDERS: Emergency Medicine; Emergency Provider Physician Assistant; PCP Family Medicine
DX: N13.2 Hydronephrosis with renal and ureteral calculous obstruction (principal); Z98.890 Other specified postprocedural states
CPT/HCPCS: 74176; 80053; 81001; 81003; 83690; 84703; 85025; 96361; 96374; 96375; 99285; J1885; J2765; J7030

== ENCOUNTER 2023-09-23 00:08 | Emergency (ER) | payer MEDICAID, SELFPAY ==
[2023-09-23 00:10] VITALS: BP 135/90; PULSE 80; RESP 18; TEMP 36.8; O2SAT 99; BMI 32.1
--- NOTE | 2023-09-23 00:19 | XRR_ITS ---
PROCEDURE INFORMATION: Exam: XR Chest Exam date and time: 09/23/2023 12:41 AM Age: 33 years old Clinical indication: Shortness of breath; Patient HX: Patient dx flu a last week; Additional info: Chest pain dyspnea TECHNIQUE: Imaging protocol: Radiologic exam of the chest. Views: 1 view. COMPARISON: CR XR chest 1V portable [id number] 12/24/2021 3:40 PM FINDINGS: Lungs: Unremarkable. No consolidation. Pleural spaces: Unremarkable. No pleural effusion. No pneumothorax. Heart/Mediastinum: Unremarkable. No cardiomegaly. Bones/joints: Unremarkable. XR/XR chest 1V portable [id number] IMPRESSION: No acute findings.
--- NOTE | 2023-09-23 00:19 | ECG_ITS ---
[facility] Test Date: 2023-09-23 Pat Name: Celina Hinton Department: Room: Gender: Female Coo: : 1990 Requested By: Troy Roberts Order Number: [id number] [place] MD: Morro Cutler M.D. Measurements Intervals [place] Rate: 75 P: 32 MA: 142 QRS: 17 QRSD: 94 T: 27 QT: 389 QTc: 436 Interpretive Statements SINUS RHYTHM INCOMPLETE RIGHT BUNDLE BRANCH BLOCK [90+ ms QRS DURATION, TERMINAL R IN V1/V2, 40+ ms S IN I/aVL/V4/V5/V6] Compared to ECG 12/24/2021 17:40:41 Incomplete right bundle-branch block now present Electronically Signed On 09-23-2023 19:48:01 RETAIL PERSONAL BANKER by Morro Cutler M.D. [email or web address]
--- NOTE | 2023-09-23 00:23 | ED_ITS ---
HPI - SOB/Dyspnea 2 General: Chief Complaint: Shortness of Breath/Dyspnea Stated Complaint: Sob, Time Seen by Provider: 09/23/23 00:09 History of Present Illness: HPI Narrative: Patient presents to the ER complaining of respiratory symptoms. Patient says she thinks she was exposed to influenza A. Patient says she been fever free for last 3 days however her chest is been getting heavy in the center and she started getting short of breath again yesterday which was worse throughout the day. Chest is heaviness is worse when she takes a big deep breath or lying flat. Patient has been taking Tylenol and ibuprofen. Patient also states she is been coughing up some green phlegm. Patient is not currently having any chest pain at this time. Patient has no cardiac history. Patient was not formally tested for influenza or COVID. Patient normally does not have any breathing problems. Review of Systems 2 General: Reports: 10 or more systems reviewed and unremarkable except in HPI and below PFSH ED 2 PFSH: Medical History Psychiatric care Urinary tract infection Surgical History H/O tubal ligation S/P cholecystectomy H/O lithotripsy x4 Family History Mother Hyperlipidemia Hypertension Clotting disorder Grandfather Stroke maternal Family/Other Diabetes maternal uncle, maternal aunt Breast cancer maternal great aunts x2, one in 40's, other unknown Denies family history of Colon cancer Ovarian cancer Heart disease Anesthesia complication Bleeding disorder Uterine cancer Thyroid disease Physical Exam 2 Const: COMMON NORMALS: no acute distress, average body habitus, patient oriented x3, no limitations, healthy appearing, alert and well nourished HENMT: COMMON NORMALS: normocephalic, atraumatic, hearing grossly normal bilaterally, external ears normal, EAC's normal, Normal external nose present, moist oral mucous membranes and oropharynx normal HEAD & SCALP: normocephalic and atraumatic NOSE: Normal external nose present EXTERNAL EAR: Yes external ears normal EXTERNAL AUDITORY CANAL: EAC's normal Neck/C-Spine: COMMON NORMALS: no JVD Chest: COMMONS NORMALS: normal inspection of the chest and normal palpation of entire chest wall Resp: COMMON NORMALS: normal respiratory effort, No retractions, No use of accessory muscles and clear to auscultation bilaterally AUSCULTATION: clear to auscultation bilaterally Cardio: COMMON NORMALS: no JVD, regular rate, regular rhythm, S1 normal heart sound present, S2 normal heart sound present, No gallops present (Cardio), No clicks present (Cardio), No murmurs present (Cardio) and No rub (Cardio) R ATE: regular rate RHYTHM: regular rhythm HEART SOUNDS: S1 normal heart sound present and S2 normal heart sound present GI: COMMON NORMALS: Normal to inspection, nondistended, normoactive bowel sounds present, Soft to palpation, non-tender, No hepatosplenomegaly present and no masses PALPATION: Yes Soft to palpation and Yes No hepatosplenomegaly present Neuro: COMMON NORMALS: patient oriented x3 SENSORIUM/ORIENTATION: Yes alert Course 2 Vital Signs: Vital signs: Vital Signs Temperature 98.2 F 09/23/23 00:10 Pulse Rate 85 09/23/23 01:01 Respiratory Rate 16 09/23/23 01:01 Blood Pressure 115/60 09/23/23 01:01 Pulse Oximetry 97 09/23/23 01:01 MDM - SOB/Dyspnea Medical Decision Making Patient presented to the ER with complaints of respiratory symptoms and pleuritic type chest pain. Patient was worked up with chest x-ray which showed no acute findings, EKG which was benign, and lab work that showed no acute symptomatology for chest pain. Influenza and COVID was negative. It is thought that patient has more of a pleuritic type chest pain or costochondritis secondary to coughing. Patient will be dosed with prednisone here today and be given a prescription to go home with. Patient be discharged home to follow-up with her PCP in 7 to 10 days on an as-needed basis. Differential Diagnosis Unlikely acute exacerbation of chronic obstructive airways disease, congestive heart failure, community acquired pneumonia, asthma with exacerbation or pulmonary embolism Medical Records I reviewed the patient's medical records. Lab Data I reviewed the patient's lab results. 09/23/23 00:24 09/23/23 00:24 Labs/Radiology: Radiology Impressions Chest X-Ray 09/23/23 00:19 IMPRESSION: No acute findings. Laboratory Results WBC 5.33 10^3/uL (3.29-11.43) 09/23/23 00:24 RBC 4.10 10^6/uL (3.85-5.65) 09/23/23 00:24 Hgb 12.30 g/dL (11.27-16.99) 09/23/23 00:24 Hct 37.2 % (36-47) 09/23/23 00:24 MCV 90.7 fl (85-98) 09/23/23 00: MCH 30.0 pg (27-33) 09/23/23 00: MCHC 33.1 g/dL (30-55) 09/23/23 00: RDW 12.2 % (12.1-15.1) 09/23/23 00: Plt Count 371 10^3/cmm (157-399) 09/23/23 00: MPV 10.4 fL (7.4-10.4) 09/23/23 00:24 Neut % (Auto) 51.7 % 09/23/23 00: Lymph % (Auto) 39.2 % 09/23/23 00: [place] % (Auto) 6.4 % 09/23/23 00:24 Eos % (Auto) 2.1 % 09/23/23 00:24 Baso % (Auto) 0.4 % 09/23/23 00:24 Neut # (Auto) 2.76 10^3/uL (1.8-7.7) 09/23/23 00:24 Lymph # (Auto) 2.1 10^3/uL (0.8-4.8) 09/23/23 00:24 [place] # (Auto) 0.3 10^3/uL (0.2-0.9) 09/23/23 00:24 Eos # (Auto) 0.1 10^3/uL (0.0-0.8) 09/23/23 00:24 Baso # (Auto) 0.0 10^3/uL (0.0-0.1) 09/23/23 00:24 Nucleated RBC % (auto) 0 % 09/23/23 00: Nucleated RBCs # 0.0 /100WBC 09/23/23 00: Sodium 139 mmol/L (136-145) 09/23/23 00: Potassium 3.6 mmol/L (3.5-5.1) 09/23/23 00:24 Chloride 103 mmol/L (98-107) 09/23/23 00:24 Carbon Dioxide 25 mmol/L (22-29) 09/23/23 00:24 Anion Gap 14.6 (5-19) 09/23/23 00:24 BUN 12 mg/dL (6-20) 09/23/23 00:24 Creatinine 0.5 mg/dL (0.5-0.9) 09/23/23 00:24 GFR Calculation 143.9 mL/min (90-130) H 09/23/23 00:24 Glucose 103 mg/dL (65-115) 09/23/23 00:24 Calculated Osmolality 288 mOsm/kg (285-295) 09/23/23 00:24 Calcium 9.2 mg/dL (8.5-10.5) 09/23/23 00:24 Total Bilirubin 0.2 mg/dL (0.15-1.2) 09/23/23 00:24 AST 39 U/L (0-32) H 09/23/23 00:24 ALT 35 U/L (0-33) H 09/23/23 00:24 Alkaline Phosphatase 86 U/L (35-105) 09/23/23 00:24 Troponin T Baseline < 6 ng/L (0-10) 09/23/23 00:24 Total Protein 7.4 g/dL (6.6-8.7) 09/23/23 00:24 Albumin 4.7 g/dL (3.5-5.2) 09/23/23 00:24 Globulin 2.7 g/dL (1.3-4.6) 09/23/23 00:24 Influenza Type A Ag negative (Negative) 09/23/23 00:24 Influenza Type B Ag negative (Negative) 09/23/23 00:24 SARS-CoV-2 Ag (Rapid) negative (Negative) 09/23/23 00:24 All radiology interpretation(s) finalized by discharge EKG Data EKG 1: I personally reviewed and interpreted this EKG as follows: EKG Interpretation Date: 09/23/23 EKG interpretation time: 00:19 Prior EKG tracings: not available for review Interpretation: EKG showed ventricular rate 75 bpm, VT interval 142, QRS duration 94, QTc of 418, sinus rhythm, incomplete right bundle branch block, Discharge Plan Discharge Patient Disposition: Home Clinical Impression: Chest pain, pleuritic Condition: Stable Prescriptions: No Action pantoprazole 20 mg tablet,delayed release (DR/EC) 20 mg PO DAILY PRN trazodone 50 mg tablet 100 mg PO DAILY PRN hydroxyzine HCl 25 mg tablet 25 mg PO TID PRN venlafaxine 150 mg capsule,extended release 24hr 150 mg PO DAILY buspirone 5 mg tablet 5 mg PO BID PRN (Reason: anxiety) 30 Days Qty: 60 3RF Tylenol Ex Str Rapid Release 500 mg Tablet 1,000 mg PO Q6H PRN (Reason: Pain) Discharge Orders: Discharge ED (Routine); Ordered 09/23/23 Ordered By: Troy Roberts Referrals: Carroll Humphreys MD [Primary Care Provider] - 1 week Patient Instructions: Chest Pain - Noncardiac, Pleurisy (ED) Activity Restrictions/Additional Instructions: Activity restrictions/additional instructions: Thank you for choosing [facility] for your healthcare needs today. Please take all your medicine as instructed. Please realize that you were seen in the emergency department and that we are providing you with an emergency medical screening exam and this may not be a complete and all exclusive of all testing and/or medical workup we may need to determine your element or severity of your illness. It is very important that you follow-up as instructed with your primary care provider or specialist for the additional evaluation and to discuss your medical treatment plan. You may return to the emergency department should you have concerns or if your condition changes or worsens in any way. Coding Level of Care Code ED Brand Manager for Adi Mulligan
[2023-09-23 00:33] LABS: Basophils % 0.4 %; Eosinophils # 0.1 10^3/uL (0.0-0.8); Eosinophils % 2.1 %; Hematocrit 37.2 % (36-47); Lymphocytes # 2.1 10^3/uL (0.8-4.8); Lymphocytes % 39.2 %; Mean Corpuscular HGB Conc 33.1 g/dL (30-55); Mean Corpuscular Volume 90.7 fl (85-98); Mean Platelet Volume 10.4 fL (7.4-10.4); Monocytes # 0.3 10^3/uL (0.2-0.9); Monocytes % 6.4 %; Neutrophils # 2.76 10^3/uL (1.8-7.7); Neutrophils % 51.7 %; Nucleated Red Blood Cells % 0 %; Platelet Count 371 10^3/cmm (157-399); Red Cell Distribution Width 12.2 % (12.1-15.1); White Blood Count 5.33 10^3/uL (3.29-11.43)
[2023-09-23 00:47] LABS: Influenza A by IFA negative (Negative); Influenza B by IFA negative (Negative); SARS Covid-2 Antigen negative (Negative)
[2023-09-23 00:50] LABS: Troponin(5th) Baseline < 6 ng/L (0-10)
[2023-09-23 00:52] LABS: Alanine Aminotransferase 35 U/L (0-33); Albumin Level 4.7 g/dL (3.5-5.2); Alkaline Phosphatase 86 U/L (35-105); Anion Gap 14.6 (5-19); Aspartate Amino Transferase 39 U/L (0-32); Blood Urea Nitrogen 12 mg/dL (6-20); Calcium 9.2 mg/dL (8.5-10.5); Carbon Dioxide 25 mmol/L (22-29); Chloride 103 mmol/L (98-107); Globulin 2.7 g/dL (1.3-4.6); Glomerular Filtration Rate 143.9 mL/min (90-130); Glucose 103 mg/dL (65-115); Osmolality Calculated 288 mOsm/kg (285-295); Potassium 3.6 mmol/L (3.5-5.1); Sodium 139 mmol/L (136-145); Total Bilirubin 0.2 mg/dL (0.15-1.2); Total Protein 7.4 g/dL (6.6-8.7)
[2023-09-23 01:01] VITALS: BP 115/60; PULSE 85; RESP 16; O2SAT 97
[2023-09-23] MEDS: predniSONE 20 mg Tablet 40 MG PO (01:12)
[2023-09-23 01:18] VITALS: BP 125/87; PULSE 79; RESP 14; O2SAT 97
== END 2023-09-23 01:18 | disposition home or self-care (01) ==
PROVIDERS: Emergency Provider Emergency Medicine; PCP Family Medicine
DX: R09.1 Pleurisy (principal); R07.9 Chest pain, unspecified
CPT/HCPCS: 71045; 80053; 84484; 85025; 87426; 87804; 93005; 99285; J7512